=== PATIENT | male | born 1985 | race Caucasian/White ===

== ENCOUNTER 2016-11-24 09:46 | Emergency (ER) | payer SELFPAY ==
[~2016-11-24] VITALS: Ht 185.4 cm; Wt 127.0 kg
[~2016-11-24 09:46] MED LIST: ASPIRIN81 MG ORAL; BENTYL10 MG ORAL; HYDRALAZINE HCL25 M1 ORAL; NKM; NORCO 5-325 TA1 EACH ORAL; NORVASC10 MG ORAL; PEPCID40 MG PO; PRAVACHOL20 MG ORAL; TRAMADOL HCL50 MG ORAL; ZOFRAN ODT4 MG ORAL; ZOFRAN4 M3 ORAL
[2016-11-24 10:10] VITALS: BP 227/146
[2016-11-24] MEDS ORDERED: fentaNYL 100 mcg/2 mL IV ONE (11:15)
[2016-11-24 11:27] LABS: BASOPHILS % (AUTO) 1.3 % (0.0-2.0); LYMPHOCYTES % (AUTO) 39.7 % (20.0-45.0); MEAN CORPUSCULAR HEMOGLOBIN 29.4 PG (27.0-31.0); MEAN CORPUSCULAR HGB CONC 35.1 G/DL (32.0-36.0); MEAN CORPUSCULAR VOLUME 84 FL (80-99); MEAN PLATELET VOLUME 7.9 FL (6.5-10.1); MONOCYTES % (AUTO) 4.6 % (1.0-10.0); NEUTROPHILS % (AUTO) 53.4 % (45.0-75.0); PLATELET COUNT 261 K/UL (150-450); RED BLOOD COUNT 6.77 M/UL (4.70-6.10); RED CELL DISTRIBUTION WIDTH 11.1 % (11.6-14.8); WHITE BLOOD COUNT 6.9 K/UL (4.8-10.8)
[2016-11-24 11:36] LABS: ALANINE AMINOTRANSFERASE 72 U/L (3-41); ALBUMIN/GLOBULIN RATIO 1.3 (1.0-2.7); ANION GAP 18 (5-15); ASPARTATE AMINO TRANSFERASE 52 U/L (5-40); CARBON DIOXIDE 26 mEQ/L (20-30); CHLORIDE 93 mEQ/L (98-107); GLOMERULAR FILTRATION RATE > 60 mL/min (>60); HEMOLYSIS 14; LIPASE 58 U/L (< 60); POTASSIUM 2.8 mEQ/L (3.4-4.9); SODIUM 137 mEQ/L (135-145); TOTAL PROTEIN 8.4 g/dL (6.6-8.7)
[2016-11-24 12:00] VITALS: BP 199/127
[2016-11-24 12:29] LABS: APPEARANCE,URINE CLEAR; KETONES,URINE 1+ (NEGATIVE); LEUKOCYTE ESTERASE ,URINE NEGATIVE (NEGATIVE); NITRITE,URINE NEGATIVE (NEGATIVE); PH,URINE 5 (4.5-8.0); PROTEIN,URINE 3+ (NEGATIVE); UROBILINOGEN,URINE NORMAL MG/DL (0.0-1.0)
[2016-11-24 12:44] LABS: BACTERIA,URINE FEW /HPF; RBC,URINE 0-2 /HPF (0 - 0); SQUAMOUS EPITHELIAL CELL,UR OCCASIONAL /LPF (NONE/OCC); WBC,URINE 0-2 /HPF (0 - 0)
[2016-11-24] MEDS ORDERED: HYDROmorphone 1 MG, DiphenhydrAMINE 25 MG in NS 55 ML IVPB ONE (12:45)
[2016-11-24] MEDS ORDERED: NORVASC10 MG ORAL (12:53)
[2016-11-24] MEDS ORDERED: Tubing IV Cassette IV ONE (12:56)
[2016-11-24] MEDS ORDERED: NS 55 ML IV ONE (12:56)
[2016-11-24] MEDS ORDERED: HYDROmorphone 1mg/ml Carpuject ONE (12:56)
[2016-11-24] MEDS ORDERED: DiphenhydrAMINE 50mg/ml Inj ONE (12:56)
[2016-11-24 13:30] VITALS: BP 179/112
[2016-11-24 13:59] VITALS: BP 179/112
--- NOTE | 2016-11-25 16:05 | Emergency Room Report ---
History of Present Illness General Chief Complaint: Abdominal Pain Source: Patient Present Illness HPI 31YOM well-known to this ER for multiple visits for abd pain, known chronic pancreatitis presents with epigastric abd pain for 2 hours. Assoc with nausea. Denies fever/chills, urinary complaints, vomiting, diarrhea. Patient has very high BP. Known HTN per EMR review. Patient states not talking anything for BP, "wasnt told about this," but EMR clearly states there was a plan at discharge for multiple admissions to treat his known HTN. Allergies: Coded Allergies: MORPHINE (Verified Allergy, Unknown, HIVES, 05/05/09) Patient History Past Medical History: HTN Past Surgical History: none Pertinent Family History: none Social History: Denies: alcohol use, drug use, smoking Immunizations: UTD Reviewed Nursing Documentation: PMH: Agreed, PSxH: Agreed Nursing Documentation-PMH Past Medical History: No History, Except For Hx Hypertension: Yes Hx Diabetes: Yes - Pre-diabetic Hx Cancer: No Hx Gastrointestinal Problems: Yes Hx Neurological Problems: No Review of Systems All Other Systems: negative except mentioned in HPI Physical Exam Vital Signs Date Time Temp Pulse Resp B/P Pulse Ox O2 Delivery O2 Flow Rate FiO2 11/24/16 10:07 98.4 103 16 207/144 99 Room Air Sp02 EP Interpretation: reviewed, abnormal General Appearance: normal inspection, well appearing, no apparent distress, alert, GCS 15, non-toxic Head: normocephalic, atraumatic Eyes: bilateral eye EOMI, bilateral eye PERRL ENT: normal ENT inspection, hearing grossly normal, normal voice Neck: normal inspection, full range of motion, supple, no bony tend Respiratory: normal inspection, lungs clear, normal breath sounds, no respiratory distress, no retraction, no wheezing Cardiovascular #1: regular rate, rhythm, no edema Gastrointestinal: normal inspection, normal bowel sounds, soft, no guarding, no hernia, other - mild epigastric ttp Genitourinary: no CVA tenderness Musculoskeletal: normal inspection, back normal, normal range of motion, Nestor' s Sign negative Neurologic: normal inspection, alert, oriented x3, responsive, 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 Unlikely acute pancreatitis given previous visits with always elevated lipase Improved with narcotics Patient would continue to complain of pain and say "the medication worked and I fell asleep but then I woke up with pain" but on serial checks, always resting comfortably in stretcher, playing on [employer] App HTN DBP from 144 to 112 after treating pain. Reviewed EMR - plan was for patient to start Norvasc 10mg. Will DC with this RX Advised PMD for followup I strongly am concerned for narcotic seeking behavior in this patient. DC home Last Vital Signs Date Time Temp Pulse Resp B/P Pulse Ox O2 Delivery O2 Flow Rate FiO2 11/24/16 13:59 98.4 85 16 179/112 99 Room Air Status: improved Disposition: HOME, SELF-CARE Condition: Serious Scripts Amlodipine Besylate (Norvasc) 10 Mg Tablet 10 MG ORAL DAILY for 30 Days, #30 TAB Prov: NATALIIA HUIZAR M.D. 11/24/16 Patient Instructions: Abdominal Pain, Adult, Hypertension, [id number] Additional Instructions: - PLEASE Start taking Norvasc 10mg daily for your high blood pressure - Follow up with primary care doctor in 1 week NATALIIA HUIZAR M.D. Nov 25, 2016 16:05
== END 2016-11-24 13:59 | disposition home or self-care (01) ==
LOC: EMR 10:18
DX: R10.13 Epigastric pain (principal); I10 Essential (primary) hypertension; Z76.5 Malingerer [conscious simulation]; K86.1 Other chronic pancreatitis; R73.03 Prediabetes; Z88.6 Allergy status to analgesic agent; R11.0 Nausea
CPT/HCPCS: 36415; 80053; 81003; 83690; 85025; 96374; 96375; 99284; J1170; J1200; J2405; J3010

== ENCOUNTER 2017-06-05 18:04 | Emergency (ER) | payer SELFPAY ==
[~2017-06-05] VITALS: Ht 185.4 cm; Wt 127.0 kg
[2017-06-05 18:20] VITALS: BP 213/116
--- NOTE | 2017-06-05 18:27 | Emergency Room Report ---
History of Present Illness General Chief Complaint: Headache Source: Patient Present Illness HPI 31YOM walk-in with severe left sided frontal headache for 5 days No associated nausea/vomiting/photophobia, neck pain, fever/chills, extremity weakness ?history of migraines No history of SAH, meningitis Took ASA yesterday Pain is "all the time" except "when I sleep." No difference in symtpoms day/night Allergies: Coded Allergies: MORPHINE (Verified Allergy, Unknown, HIVES, 05/05/09) Patient History Past Medical History: COPD, other - pancreatitis Past Surgical History: none Pertinent Family History: none Social History: Denies: smoking, alcohol use, drug use Immunizations: UTD Reviewed Nursing Documentation: PMH: Agreed, PSxH: Agreed Nursing Documentation-PMH Hx Hypertension: Yes Hx Diabetes: Yes - Pre-diabetic Hx Cancer: No Hx Gastrointestinal Problems: Yes - Pancreatitis Hx Neurological Problems: No Review of Systems All Other Systems: negative except mentioned in HPI Physical Exam Vital Signs Date Time Temp Pulse Resp B/P (MAP) Pulse Ox O2 Delivery O2 Flow Rate FiO2 06/05/17 18:12 98.4 96 16 205/155 97 Room Air Sp02 EP Interpretation: reviewed, normal General Appearance: normal inspection, well appearing, no apparent distress, alert, GCS 15, non-toxic Head: normocephalic, atraumatic ENT: normal ENT inspection, hearing grossly normal, normal voice Neck: normal inspection, full range of motion, supple, no bony tend Respiratory: normal inspection, lungs clear, normal breath sounds, no respiratory distress, no retraction, no wheezing Cardiovascular #1: regular rate, rhythm, no edema Gastrointestinal: normal inspection, normal bowel sounds, non tender, soft, no guarding, no hernia Genitourinary: no CVA tenderness Musculoskeletal: normal inspection, back normal, normal range of motion, Nestor' s Sign negative Neurologic: normal inspection, alert, responsive, speech normal Psychiatric: normal inspection, judgement/insight normal, mood/affect normal Skin: normal inspection, normal color, no rash Medical Decision Making Diagnostic Impression: Primary Impression: Headache Qualified Codes: G44.209 - Tension-type headache, unspecified, not intractable Additional Impression: Hypertension Qualified Codes: I10 - Essential (primary) hypertension ER Course Headache Tension vs migraine less likely CT head neg for SAH, mass/AD Improved with reglan/tylenol BP also improved with analgesia Likely has HTN - was given norvasc by me in November. Never followed up with PMD - lost job. Not taking anything currently Will do additional Rx Norvasc Patient pormised to followup with PMD to recheck BP DC home Last Vital Signs Date Time Temp Pulse Resp B/P (MAP) Pulse Ox O2 Delivery O2 Flow Rate FiO2 06/05/17 18:12 98.4 96 16 205/155 97 Room Air Status: improved Disposition: HOME, SELF-CARE Scripts Acetaminophen* (ACETAMINOPHEN EXTRA STRENGTH*) 500 Mg Tablet 500 MG ORAL Q12HR Y for For Headache, #30 TAB Prov: NATALIIA HUIZAR M.D. 06/05/17 Metoclopramide Hcl* (REGLAN*) 10 Mg Tablet 10 MG ORAL BID for For Headache for 7 Days, #14 TAB Prov: NATALIIA HUIZAR M.D. 06/05/17 Amlodipine Besylate (Norvasc) 10 Mg Tablet 10 MG ORAL DAILY for 30 Days, #30 TAB 1 Refill Prov: NATALIIA HUIZAR M.D. 06/05/17 NATALIIA HUIZAR M.D. Jun 05, 2017 18:27
[2017-06-05 19:15] VITALS: BP 193/115
[2017-06-05] MEDS ORDERED: NORVASC10 MG ORAL (19:18)
[2017-06-05] MEDS ORDERED: REGLAN10 MG ORAL (19:18)
[2017-06-05] MEDS ORDERED: ACETAMINOPHEN500 M3 ORAL (19:18)
[2017-06-05 19:28] VITALS: BP 193/115
--- NOTE | 2017-06-06 09:46 | Diagnostic Imaging Report ---
Indications: Headache and dizziness since Tuesday, hypertensive Technique: Spiral acquisitions obtained through the brain. Angled axial and coronal 5 x 5 mm slices were reconstructed. Total dose length product 1417 mGycm. CTDI vol(s) 70 mGy. Dose reduction achieved using automated exposure control Comparison: None Findings: No acute intracranial hemorrhage or edema. No mass effect or midline shift. Ventricles and extra-axial CSF spaces are prominent for age. Normal chong-white differentiation. Intact calvarium. There is minimal ethmoid sinus disease on the left. Impression: Mild cerebral volume loss, advanced for age. Correlate with clinical history Negative for acute intracranial bleed or mass effect Minimal ethmoid sinus disease This agrees with the preliminary interpretation provided overnight by [facility] service. The CT scanner at [facility] is accredited by the [place] [employer] and the scans are performed using protocols designed to limit radiation exposure to as low as reasonably achievable to attain images of sufficient resolution adequate for diagnostic evaluation.
== END 2017-06-05 19:28 | disposition home or self-care (01) ==
LOC: EMR 18:38
DX: R51 Headache (principal); I10 Essential (primary) hypertension; J44.9 Chronic obstructive pulmonary disease, unspecified; J32.2 Chronic ethmoidal sinusitis
CPT/HCPCS: 70450; 99284

== ENCOUNTER 2018-06-06 06:59 | Emergency (ER) | payer SELFPAY ==
[2018-06-06] VITALS (7 sets, daily range): BP systolic 159–224; BP diastolic 98–157
[~2018-06-06] VITALS: Ht 185.4 cm; Wt 122.5 kg
[~2018-06-06 06:59] MED LIST changes: +ACETAMINOPHEN500 M3 ORAL; +REGLAN10 MG ORAL
[2018-06-06] MEDS ORDERED: Metoclopramide 10mg/2ml Inj IVP ONE (07:15)
[2018-06-06] MEDS ORDERED: DiphenhydrAMINE 50mg/ml Inj IVP ONE (07:15)
[2018-06-06] MEDS ORDERED: Ketorolac 30mg Inj IV ONE (07:15)
--- NOTE | 2018-06-06 07:17 | Emergency Room Report ---
History of Present Illness General Chief Complaint: Abdominal Pain Source: Patient Present Illness HPI Patient is a 32-year-old male presented after increased abdominal discomfort. Patient reports having increased left-sided abdominal cramping. He reports having increased abdominal pain associated with nausea. He denies any black or bloody stools. He reports having prior history of pancreatitis. Patient denies any alcohol use. He reports having prior history of hypertriglyceridemia. The patient is nonsmoker. He denies any other locations of pain. He states that he had no change in pain with exertion or position. Allergies: Coded Allergies: MORPHINE (Verified Allergy, Unknown, HIVES, 05/05/09) Patient History Past Medical History: see triage record Reviewed Nursing Documentation: PMH: Agreed; PSxH: Agreed Nursing Documentation-PMH Past Medical History: No History, Except For Hx Hypertension: Yes Hx Diabetes: Yes - Pre-diabetic Hx Cancer: No Hx Gastrointestinal Problems: Yes Hx Neurological Problems: No Review of Systems All Other Systems: negative except mentioned in HPI Physical Exam Vital Signs Date Time Temp Pulse Resp B/P (MAP) Pulse Ox O2 Delivery O2 Flow Rate FiO2 06/06/18 07:02 97.5 91 18 235/141 98 Room Air Sp02 EP Interpretation: reviewed, normal General Appearance: normal inspection, well appearing, no apparent distress, alert, GCS 15 Head: atraumatic ENT: normal ENT inspection, hearing grossly normal, normal voice Neck: normal inspection, full range of motion, supple, no bony tend Respiratory: normal inspection, lungs clear, normal breath sounds, no respiratory distress, no retraction, no wheezing Cardiovascular #1: regular rate, rhythm, no edema Gastrointestinal: normal inspection, normal bowel sounds, non tender, soft, no guarding, no hernia Genitourinary: no CVA tenderness Musculoskeletal: normal inspection, back normal, normal range of motion Neurologic: normal inspection, alert, oriented x3, responsive, 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 Differential diagnoses included ischemic bowel, appendicitis, perforated viscus, abdominal aortic aneurysm, inferior myocardial infarction, viral gastroenteritis Because of complexity of patient's case laboratory testing and imaging studies were ordered.The patient was noted to have previous abdominal MRI which did not show any evidence of severe abdominal pathology. Patient given medications to the assist with lowering patient's blood pressure which was noted be markedly elevated and had been chronically elevated. The patient states he is allergic to morphine. The patient was given medications for symptomatic treatment. He was given IV magnesium and oral potassium due to hypokalemia. The patient given medication to help control blood pressure with improvement in his hypertension. The patient was advised that he would need to follow-up with primary care as well as cardiology and rheumatology due to prior positive antinuclear antibodies. The patient given prescription for pain medications as well as metformin due to hyperglycemia. The patient was advised dietary modification. The patient is advised to follow up with primary care doctor in 2 days. Patient is advised to return if any worsening condition or if any changes in status that are concerning. This report is dictated with [employer] [place] software which may occasionally lead to discrepancies related to use of this software. Labs Test 06/06/18 07:17 White Blood Count 6.8 K/UL (4.8-10.8) Red Blood Count 6.64 M/UL (4.70-6.10) Hemoglobin 19.5 G/DL (14.2-18.0) Hematocrit 52.6 % (42.0-52.0) Mean Corpuscular Volume 79 FL (80-99) Mean Corpuscular Hemoglobin 29.4 PG (27.0-31.0) Mean Corpuscular Hemoglobin Concent 37.2 G/DL (32.0-36.0) Red Cell Distribution Width 9.9 % (11.6-14.8) Platelet Count 248 K/UL (150-450) Mean Platelet Volume 7.9 FL (6.5-10.1) Neutrophils (%) (Auto) 41.8 % (45.0-75.0) Lymphocytes (%) (Auto) 47.1 % (20.0-45.0) Monocytes (%) (Auto) 7.6 % (1.0-10.0) Eosinophils (%) (Auto) 1.9 % (0.0-3.0) Basophils (%) (Auto) 1.6 % (0.0-2.0) Prothrombin Time 10.2 SEC (9.30-11.50) Prothromb Time International Ratio 1.0 (0.9-1.1) Activated Partial Thromboplast Time 26 SEC (23-33) Sodium Level 133 MMOL/L (136-145) Potassium Level 3.0 MMOL/L (3.5-5.1) Chloride Level 96 MMOL/L (98-107) Carbon Dioxide Level 23 MMOL/L (21-32) Anion Gap 14 mmol/L (5-15) Blood Urea Nitrogen 19 mg/dL (7-18) Creatinine 1.1 MG/DL (0.55-1.30) Estimat Glomerular Filtration Rate > 60 mL/min (>60) Glucose Level 360 MG/DL (74-106) Calcium Level 9.1 MG/DL (8.5-10.1) Total Bilirubin 0.5 MG/DL (0.2-1.0) Aspartate Amino Transf (AST/SGOT) 24 U/L (15-37) Alanine Aminotransferase (ALT/SGPT) 63 U/L (12-78) Alkaline Phosphatase 87 U/L (46-116) Troponin I 0.000 ng/mL (0.000-0.056) Total Protein 8.3 G/DL (6.4-8.2) Albumin 3.7 G/DL (3.4-5.0) Globulin 4.6 g/dL Albumin/Globulin Ratio 0.8 (1.0-2.7) Lipase 467 U/L (73-393) EKG Diagnostic Results Rate: normal Rhythm: NSR ST Segments: other - j point elevation Last Vital Signs Date Time Temp Pulse Resp B/P (MAP) Pulse Ox O2 Delivery O2 Flow Rate FiO2 06/06/18 07:02 97.5 91 18 235/141 98 Room Air Status: improved Disposition: HOME, SELF-CARE Condition: Stable Scripts Hydrocodone Bit/Acetaminophen 5-325* (NORCO 5-325*) 1 Each Tablet 1 TAB ORAL Q6H PRN for For Pain, #10 TAB 0 Refills Prov: Juan Pablo Galvan MD 06/06/18 Ondansetron Odt* (ZOFRAN ODT*) 4 Mg Tab.rapdis 4 MG BC EVERY 6 HOURS PRN for Nausea & Vomiting, #10 TAB 0 Refills Prov: Juan Pablo Galvan MD 06/06/18 Metformin Hcl* (METFORMIN HCL*) 500 Mg Tablet 500 MG ORAL TWICE A DAY, #30 TAB Prov: Juan Pablo Galvan MD 06/06/18 Juan Pablo Galvan MD Jun 06, 2018 07:17
[2018-06-06 07:41] LABS: BASOPHILS % (AUTO) 1.6 % (0.0-2.0); EOSINOPHILS % (AUTO) 1.9 % (0.0-3.0); HEMATOCRIT 52.6 % (42.0-52.0); LYMPHOCYTES % (AUTO) 47.1 % (20.0-45.0); MEAN CORPUSCULAR VOLUME 79 FL (80-99); MONOCYTES % (AUTO) 7.6 % (1.0-10.0); NEUTROPHILS % (AUTO) 41.8 % (45.0-75.0); PLATELET COUNT 248 K/UL (150-450); RED BLOOD COUNT 6.64 M/UL (4.70-6.10); RED CELL DISTRIBUTION WIDTH 9.9 % (11.6-14.8); WHITE BLOOD COUNT 6.8 K/UL (4.8-10.8)
[2018-06-06] MEDS ORDERED: Enalaprilat 2.5mg/2ml Inj IV ONE (07:45)
[2018-06-06 07:46] LABS: HEMOGLOBIN 19.5 G/DL (14.2-18.0)
[2018-06-06 08:06] LABS: ANION GAP 14 mmol/L (5-15); BLOOD UREA NITROGEN 19 mg/dL (7-18); CALCIUM 9.1 MG/DL (8.5-10.1); CARBON DIOXIDE 23 MMOL/L (21-32); CHLORIDE 96 MMOL/L (98-107); CREATININE 1.1 MG/DL (0.55-1.30); SODIUM 133 MMOL/L (136-145)
[2018-06-06 08:09] LABS: ALANINE AMINOTRANSFERASE 63 U/L (12-78); ALBUMIN 3.7 G/DL (3.4-5.0); ALBUMIN/GLOBULIN RATIO 0.8 (1.0-2.7); ALKALINE PHOSPHATASE 87 U/L (46-116); ASPARTATE AMINO TRANSFERASE 24 U/L (15-37); BILIRUBIN,TOTAL 0.5 MG/DL (0.2-1.0)
[2018-06-06] MEDS ORDERED: ONDANSETRON ODT4 MG BC (08:23)
[2018-06-06] MEDS ORDERED: METFORMIN HCL500 M1 ORAL (08:23)
[2018-06-06] MEDS ORDERED: NORCO 5-325 TA1 EACH ORAL (08:23)
--- NOTE | 2018-06-06 14:57 | Cardiology Report ---
APPROVED REPORT EKG Measurement Heart [id number] Normal sinus rhythm Left ventricular hypertrophy with repolarization abnormality Cannot rule out Septal infarct, age undetermined Abnormal ECG
== END 2018-06-06 09:20 | disposition home or self-care (01) ==
LOC: EMR 07:15
DX: K85.90 Acute pancreatitis without necrosis or infection, unspecified (principal); I10 Essential (primary) hypertension; R73.03 Prediabetes
CPT/HCPCS: 36415; 80053; 83690; 84484; 85025; 85610; 85730; 86850; 86900; 86901; 93005; 96361; 96365; 96375; 99284; J1200; J1885; J2765; S0028; J8499

== ENCOUNTER → 2018-09-25 | Emergency (ER) | payer OTHER ==
[~2018-09-25] VITALS: Ht 185.4 cm; Wt 120.2 kg
[~2018-09-25] MED LIST changes: +CARVEDILOL25 MG ORAL; +DiphenhydrAMINE 50mg/ml Inj IVP ONE; +Enalaprilat 2.5mg/2ml Inj IV ONE; +FENOFIBRATE145 M1 ORAL; +HYDROmorphone 1mg/ml Carpuject IVP ONE; +LOSARTAN POTASS50 MG ORAL; +METFORMIN HCL500 M1 ORAL; +METFORMIN HCL850 M1 ORAL; +Nitroglycerin Subl 0.4mg tab SL PRN; +ONDANSETRON ODT4 MG BC
[2018-09-25 09:05] VITALS: BP 179/115
--- NOTE | 2018-09-25 09:05 | NUR ---
ED Nurse Note: AMBULATED IN TO ER DUE TO SHARP CHEST AND ABDOMINAL PAIN W/ N/V/D SINCE LAST NIGHT. HTN AT THE BEDSIDE, PT STATES THAT HE DID NOT TAKE BP MEDICATIONS TODAY. Addendum: 09/25/18 at 0939 by [email or web address] ED Nurse Note: AMBULATED IN TO ER DUE TO SHARP CHEST AND ABDOMINAL PAIN W/ N/V/D SINCE LAST NIGHT. HTN AT THE BEDSIDE, PT STATES THAT HE DID NOT TAKE BP MEDICATIONS TODAY- LOSARTAN 100MG DAILY AND CARVEDILOL 25MG BID.
--- NOTE | 2018-09-25 09:20 | NUR ---
ED Nurse Note: BLOOD SPECIMENS AND URINE SENT DOWN TO THE LAB.
[2018-09-25 09:44] LABS: APPEARANCE,URINE CLEAR; BILIRUBIN, URINE NEGATIVE (NEGATIVE); COLOR,URINE PALE YELLOW; GLUCOSE, URINE (UA) 4+ (NEGATIVE); KETONES,URINE NEGATIVE (NEGATIVE); LEUKOCYTE ESTERASE ,URINE NEGATIVE (NEGATIVE); NITRITE,URINE NEGATIVE (NEGATIVE); PH,URINE 6.5 (4.5-8.0); PROTEIN,URINE 3+ (NEGATIVE); UROBILINOGEN,URINE NORMAL MG/DL (0.0-1.0)
[2018-09-25 09:55] LABS: BASOPHILS % (AUTO) 1.7 % (0.0-2.0); EOSINOPHILS % (AUTO) 2.3 % (0.0-3.0); HEMATOCRIT 47.1 % (42.0-52.0); HEMOGLOBIN 16.8 G/DL (14.2-18.0); LYMPHOCYTES % (AUTO) 34.5 % (20.0-45.0); MEAN CORPUSCULAR VOLUME 83 FL (80-99); MONOCYTES % (AUTO) 8.5 % (1.0-10.0); PLATELET COUNT 235 K/UL (150-450); RED BLOOD COUNT 5.66 M/UL (4.70-6.10); RED CELL DISTRIBUTION WIDTH 11.3 % (11.6-14.8); WHITE BLOOD COUNT 6.6 K/UL (4.8-10.8)
[2018-09-25 09:56] VITALS: BP 183/119
[2018-09-25 09:59] LABS: ANION GAP 9 mmol/L (5-15); BLOOD UREA NITROGEN 13 mg/dL (7-18); CALCIUM 8.8 MG/DL (8.5-10.1); CARBON DIOXIDE 26 MMOL/L (21-32); CHLORIDE 99 MMOL/L (98-107); CREATININE 1.1 MG/DL (0.55-1.30); POTASSIUM 3.2 MMOL/L (3.5-5.1); SODIUM 134 MMOL/L (136-145)
[2018-09-25 10:03] LABS: ALANINE AMINOTRANSFERASE 46 U/L (12-78); ALBUMIN 3.6 G/DL (3.4-5.0); ALKALINE PHOSPHATASE 65 U/L (46-116); ASPARTATE AMINO TRANSFERASE 20 U/L (15-37); BILIRUBIN,TOTAL 0.3 MG/DL (0.2-1.0)
[2018-09-25 13:35] VITALS: BP 177/110
--- NOTE | 2018-09-25 14:35 | NUR ---
ED Nurse Note: notified Dr. Eldridge regarding pt's high BP.
--- NOTE | 2018-09-25 16:10 | NUR ---
ED Nurse Note: Telephone report given to FATOUMATA Wilder at [facility]. [facility] at the beside.
[2018-09-25 16:11] VITALS: BP 181/112
[2018-09-25 16:12] VITALS: BP 181/112
--- NOTE | 2018-09-25 16:13 | NUR ---
TRANSFER TO FLOOR: Patient transferred to [facility] as ordered VIA [facility]. Report given to FATOUMATA WERNER. Belongings given to patient. No s/s of distres.
--- NOTE | 2018-09-25 16:42 | Emergency Room Report ---
History of Present Illness General Chief Complaint: Chest Pain Source: Patient, Medical Record Present Illness HPI 33-year-old male presents ED for evaluation. Complaining of abdominal pain with vomiting and chest pain since last night. Pain is sharp, 10 out of 10, nonradiating. Patient notes history of pancreatitis. Denies alcohol or drug use. Notes history of hypertension. Blood pressure in triage systolic greater than 200. States he takes losartan is compliant with his medications. No other aggravating relieving factors. Denies any other associated symptoms Allergies: Coded Allergies: MORPHINE (Verified Allergy, Unknown, HIVES, 05/05/09) Patient History Past Medical History: DM, HTN, other - Pancreatitis Pertinent Family History: none Social History: Denies: smoking, alcohol use, drug use Immunizations: UTD Reviewed Nursing Documentation: PMH: Agreed; PSxH: Agreed Nursing Documentation-PMH Past Medical History: No History, Except For Hx Hypertension: Yes Hx Diabetes: Yes Hx Cancer: No Hx Gastrointestinal Problems: Yes Hx Neurological Problems: No Review of Systems All Other Systems: negative except mentioned in HPI Physical Exam Vital Signs Date Time Temp Pulse Resp B/P (MAP) Pulse Ox O2 Delivery O2 Flow Rate FiO2 09/25/18 08:59 98.1 83 18 219/130 96 Room Air Sp02 EP Interpretation: reviewed, normal General Appearance: alert, GCS 15, non-toxic, mild distress Head: normocephalic, atraumatic Eyes: bilateral eye normal inspection, bilateral eye PERRL ENT: hearing grossly normal, normal pharynx, no angioedema, normal voice Neck: full range of motion, supple/symm/no masses Respiratory: chest non-tender, lungs clear, normal breath sounds, speaking full sentences Cardiovascular #1: regular rate, rhythm, no edema Cardiovascular #2: 2+ carotid (R), 2+ carotid (L), 2+ radial (R), 2+ radial (L) , 2+ dorsalis pedis (R), 2+ dorsalis pedis (L) Gastrointestinal: normal bowel sounds, soft, non-distended, no guarding, no rebound, tenderness - Epigastric Rectal: deferred Genitourinary: normal inspection, no CVA tenderness Musculoskeletal: back normal, gait/station normal, normal range of motion, non- tender Neurologic: alert, oriented x3, responsive, motor strength/tone normal, sensory intact, speech normal Psychiatric: judgement/insight normal, memory normal, mood/affect normal, no suicidal/homicidal ideation Reflexes: 3+ bicep (R), 3+ bicep (L), 3+ tricep (R), 3+ tricep (L), 3+ knee (R) , 3+ knee (L) Skin: normal color, no rash, warm/dry, well hydrated Lymphatic: no adenopathy Medical Decision Making Diagnostic Impression: Primary Impression: Pancreatitis Qualified Codes: K86.1 - Other chronic pancreatitis Additional Impressions: Chest pain Qualified Codes: R07.9 - Chest pain, unspecified Hypertension Qualified Codes: I10 - Essential (primary) hypertension ER Course Hospital Course 33-year-old male presents with chest pain, abdominal pain, hypertension Differential diagnoses include: CA/unstable angina, hypertensive urgency, pancreatitis Clinical course Patient placed on stretcher. on hr leader. After initial history and physical I ordered labs, EKG, Pepcid, Zofran labs reviewed- no leukocytosis, hemoglobin/hematocrit stable, electrolytes okay , troponins 0.030, lipase > 1000 EKG = normal sinus rhythm no acute ischemic changes interpreted by me Patient still has significant pain. Dilaudid ordered. Blood pressure also significantly elevated. Given hydralazine, enalapril, clonidine blood pressure improved and aspirin given Because of insurance patient will be transferred I. I feel this is a highly complex case requiring extensive working including EKG/Rhythm strip, Xray/CT/US, Blood/urine lab work, repeat exams while in ED, and administration of strong opiates/narcotics for pain control, admission to hospital or close patient follow up. Diagnosis - ACS, pancreatitis, hypertension Transferred in serious condition Labs Test 09/25/18 09:34 White Blood Count 6.6 K/UL (4.8-10.8) Red Blood Count 5.66 M/UL (4.70-6.10) Hemoglobin 16.8 G/DL (14.2-18.0) Hematocrit 47.1 % (42.0-52.0) Mean Corpuscular Volume 83 FL (80-99) Mean Corpuscular Hemoglobin 29.7 PG (27.0-31.0) Mean Corpuscular Hemoglobin Concent 35.7 G/DL (32.0-36.0) Red Cell Distribution Width 11.3 % (11.6-14.8) Platelet Count 235 K/UL (150-450) Mean Platelet Volume 8.3 FL (6.5-10.1) Neutrophils (%) (Auto) 53.0 % (45.0-75.0) Lymphocytes (%) (Auto) 34.5 % (20.0-45.0) Monocytes (%) (Auto) 8.5 % (1.0-10.0) Eosinophils (%) (Auto) 2.3 % (0.0-3.0) Basophils (%) (Auto) 1.7 % (0.0-2.0) Urine Color Pale yellow Urine Appearance Clear Urine pH 6.5 (4.5-8.0) Urine Specific [place] 1.010 (1.005-1.035) Urine Protein 3+ (NEGATIVE) Urine Glucose (UA) 4+ (NEGATIVE) Urine Ketones Negative (NEGATIVE) Urine Blood Negative (NEGATIVE) Urine Nitrite Negative (NEGATIVE) Urine Bilirubin Negative (NEGATIVE) Urine Urobilinogen Normal MG/DL (0.0-1.0) Urine Leukocyte Esterase Negative (NEGATIVE) Urine RBC 0 /HPF (0 - 0) Urine WBC 0 /HPF (0 - 0) Urine Squamous Epithelial Cells Occasional /LPF Urine Bacteria None /HPF (NONE) Sodium Level 134 MMOL/L (136-145) Potassium Level 3.2 MMOL/L (3.5-5.1) Chloride Level 99 MMOL/L (98-107) Carbon Dioxide Level 26 MMOL/L (21-32) Anion Gap 9 mmol/L (5-15) Blood Urea Nitrogen 13 mg/dL (7-18) Creatinine 1.1 MG/DL (0.55-1.30) Estimat Glomerular Filtration Rate > 60 mL/min (>60) Glucose Level 278 MG/DL (74-106) Calcium Level 8.8 MG/DL (8.5-10.1) Total Bilirubin 0.3 MG/DL (0.2-1.0) Aspartate Amino Transf (AST/SGOT) 20 U/L (15-37) Alanine Aminotransferase (ALT/SGPT) 46 U/L (12-78) Alkaline Phosphatase 65 U/L (46-116) Troponin I 0.030 ng/mL (0.000-0.056) Total Protein 7.2 G/DL (6.4-8.2) Albumin 3.6 G/DL (3.4-5.0) Globulin 3.6 g/dL Albumin/Globulin Ratio 1.0 (1.0-2.7) Lipase 1011 U/L (73-393) Urine Opiates Screen Negative (NEGATIVE) Urine Barbiturates Screen Negative (NEGATIVE) Phencyclidine (PCP) Screen Negative (NEGATIVE) Urine Amphetamines Screen Negative (NEGATIVE) Urine Benzodiazepines Screen Negative (NEGATIVE) Urine Cocaine Screen Negative (NEGATIVE) Urine Marijuana (THC) Screen Positive (NEGATIVE) EKG Diagnostic Results Rate: normal Rhythm: NSR ST Segments: no acute changes ASA given to the pt in ED: Yes Rhythm Strip Diag. Results EP Interpretation: yes Rhythm: NSR, no PVC's, no ectopy Last Vital Signs Date Time Temp Pulse Resp B/P (MAP) Pulse Ox O2 Delivery O2 Flow Rate FiO2 09/25/18 16:12 98.1 80 22 181/112 95 Room Air Status: improved Disposition: [facility]FER [facility] Condition: Serious Referrals: [facility],REFERRING (PCP) Ander Chang MD Sep 25, 2018 16:42
--- NOTE | 2018-09-25 17:00 | NUR ---
OUTSIDE TRANSFER: Patient transferred to [facility] as ordered VIA [facility]. Report given to FATOUMATA WERNER. Belongings given to patient. No s/s of distres.
--- NOTE | 2018-09-26 15:33 | Cardiology Report ---
APPROVED REPORT EKG Measurement Heart [id number] Normal sinus rhythm Septal infarct, age undetermined Abnormal ECG
== END | disposition home or self-care (01) ==
LOC: EMR 09:45 → EDBEDREQ 11:09
DX: K86.1 Other chronic pancreatitis (principal); I10 Essential (primary) hypertension; R07.9 Chest pain, unspecified; E11.9 Type 2 diabetes mellitus without complications; Z88.6 Allergy status to analgesic agent
CPT/HCPCS: 36415; 80053; 80307; 81003; 83690; 84484; 85025; 93005; 96361; 96374; 96375; 99285; J0360; J1170; J1200; J2405; S0028

== ENCOUNTER 2019-10-14 17:12 | Inpatient (IN) | payer OTHER ==
[~2019-10-14] VITALS: Ht 185.4 cm; Wt 119.5 kg
[~2019-10-14 17:12] MED LIST changes: -DiphenhydrAMINE 50mg/ml Inj IVP ONE; -Enalaprilat 2.5mg/2ml Inj IV ONE; -HYDROmorphone 1mg/ml Carpuject IVP ONE; -Nitroglycerin Subl 0.4mg tab SL PRN
--- NOTE | 2019-10-14 17:30 | NUR ---
ED Nurse Note: ambulated to e c/o cough bodyache and sob x tuesday. temp 98.1f oral. bp 201/123. pt states noncomplance with medication due to insurance. ao4. nad. changed into gown; attached to monitor; safety measures met.
--- NOTE | 2019-10-14 17:33 | NUR ---
ED Nurse Note: iv access established. blood and flu swab collected; sent down to lab.
[2019-10-14 17:40] VITALS: BP 201/123
--- NOTE | 2019-10-14 17:43 | Emergency Room Report ---
History of Present Illness General Chief Complaint: Upper Respiratory Illness Source: Patient Present Illness HPI Disclaimer: Please note that this report is being documented using DRAGON technology. This can lead to erroneous entry secondary to incorrect interpretation by the dictating instrument. HPI: 34-year-old male presents for evaluation of myalgias, cough and diarrhea. Symptoms began 2 days ago. He notes a progressive and nonproductive cough, chest congestion and mild shortness of breath. Cough is been working sitting all weekend. He denies fever or chills. Denies nasal congestion or sore throat. He denies abdominal pain or nausea but does report multiple episodes of diarrhea. Denies hematuria, dysuria, hematochezia or melena. Denies flank pain. States multiple sick contacts at the office. No known hospitalization and no known travel or exposure to persons with recent travel. Patient also arrives hypertensive. He states he had a lapse in insurance at the end of last year but now is returned. He is no longer following up with his PMD due to the lab labs and reinsurance has not taken his antihypertensives for several months. He denies any headache, visual changes, numbness or tingling at this time. PMH: Pancreatitis, hypertension PSH: Reviewed Allergies: Morphine Social Hx: Denies drug or alcohol use Allergies: Coded Allergies: MORPHINE (Verified Allergy, Unknown, HIVES, 05/05/09) Nursing Documentation-PMH Hx Hypertension: Yes Hx Diabetes: Yes Hx Cancer: No Hx Gastrointestinal Problems: Yes Hx Neurological Problems: No Review of Systems All Other Systems: negative except mentioned in HPI Physical Exam Vital Signs Date Time Temp Pulse Resp B/P (MAP) Pulse Ox O2 Delivery O2 Flow Rate FiO2 10/14/19 17:19 98.1 95 18 201/123 (149) 95 Room Air General: Awake and alert, no acute distress, hypertensive HEENT: NC/AT. EOMI. Cardiovascular: RRR. S1 and S2 normal. No murmur appreciated Resp: Normal work of breathing. Intermittent cough. No wheezing or crackles appreciated Abdomen: Abdomen is soft, nondistended. Nontender Skin: Intact. No abrasions, laceration or rash over the exposed skin MSK: Normal tone and bulk. Moving all extremities. No obvious deformity. Neuro: Awake and alert. Mentating appropriately. Procedures Critical Care Time Critical Care Time Total critical care time: Approximately 45 minutes Due to a high probability of clinically significant, life threatening deterioration, the patient required the highest level of preparedness to intervene emergently and I personally spent this critical care time directly and personally managing the patient. This critical care time included obtaining a history, examining the patient, pulse oximetry, ordering and reviewing studies , ordering treatments, evaluating response to treatment and updating management plan as needed, frequent reassessment and discussion with other providers as well as arranging for ultimate disposition. This critical to care time was performed to assess and manage the high probability of life-threatening deterioration that could result in multiorgan failure. This critical care time is separate from the separately billable procedures and treating other patients. Medical Decision Making Diagnostic Impression: Primary Impression: Hyperglycemia Additional Impressions: Hypertensive urgency Respiratory illness ER Course 34-year-old male presenting for evaluation of cough, myalgias, diarrhea over the past 2 days. Differential includes was not limited to a viral syndrome, possibly influenza, pneumonia, bronchitis, reactive airway disease. Overall he is well-appearing and afebrile though he does arrive hypertensive. He does not appear to be symptomatic at this time. Labs in his insurance caused him to be without his antihypertensive medications for several months. We will give him antihypertensives here in the ED. Do not believe he requires emergent imaging at this time aside from chest x-ray. Will advance work-up as needed. Laboratory Tests Test 10/14/19 17:40 White Blood Count 8.4 K/UL (4.8-10.8) Red Blood Count 6.01 M/UL (4.70-6.10) Hemoglobin 17.6 G/DL (14.2-18.0) Hematocrit 48.1 % (42.0-52.0) Mean Corpuscular Volume 80 FL (80-99) Mean Corpuscular Hemoglobin 29.4 PG (27.0-31.0) Mean Corpuscular Hemoglobin Concent 36.7 G/DL (32.0-36.0) H Red Cell Distribution Width 10.2 % (11.6-14.8) L Platelet Count 259 K/UL (150-450) Mean Platelet Volume 7.6 FL (6.5-10.1) Neutrophils (%) (Auto) 53.7 % (45.0-75.0) Lymphocytes (%) (Auto) 36.3 % (20.0-45.0) Monocytes (%) (Auto) 7.4 % (1.0-10.0) Eosinophils (%) (Auto) 1.1 % (0.0-3.0) Basophils (%) (Auto) 1.5 % (0.0-2.0) Sodium Level 136 MMOL/L (136-145) Potassium Level 3.2 MMOL/L (3.5-5.1) L Chloride Level 98 MMOL/L (98-107) Carbon Dioxide Level 28 MMOL/L (21-32) Anion Gap 10 mmol/L (5-15) Blood Urea Nitrogen 25 mg/dL (7-18) H Creatinine 1.3 MG/DL (0.55-1.30) Estimate Glomerular Filtration Rate > 60 mL/min (>60) Glucose Level 415 MG/DL (74-106) H Calcium Level 9.6 MG/DL (8.5-10.1) Total Bilirubin 0.3 MG/DL (0.2-1.0) Aspartate Amino Transferase (AST) 25 U/L (15-37) Alanine Aminotransferase (ALT) 66 U/L (12-78) Alkaline Phosphatase 70 U/L (46-116) Troponin I 0.043 ng/mL (0.000-0.056) Total Protein 7.6 G/DL (6.4-8.2) Albumin 3.5 G/DL (3.4-5.0) Globulin 4.1 g/dL Albumin/Globulin Ratio 0.9 (1.0-2.7) L Microbiology Date/Time Source Procedure Growth Status 10/14/19 17:40 Nasal Nares - Final Complete 10/14/19 17:40 Nasal Nares - Final Complete EKG Diagnostic Results EKG Time: 16:36 Rate: normal Rhythm: NSR ST Segments: no acute changes Other Impression Sinus rhythm, normal axis, normal intervals, nonspecific ST and T wave changes. Possible early repolarization Rhythm Strip Diag. Results Rhythm Strip Time: 16:36 EP Interpretation: yes Rate: 90s Rhythm: NSR, no PVC's, no ectopy Chest X-Ray Diagnostic Results Chest X-Ray Diagnostic Results : Chest X-Ray Ordered: Yes # of Views/Limited/Complete: 1 View Indication: Shortness of Breath EP Interpretation: Yes Interpretation: no consolidation, no effusion, no pneumothorax, no acute cardiopulmonary disease Impression: No acute disease Electronically Signed by: Electronically signed by Dr. Qasim Love CT/MRI/US Diagnostic Results CT/MRI/US Diagnostic Results : Impression Preliminary Findings Only See Final Report For Complete Findings CT HEAD Without Contrast: Impression: No acute intracranial pathology, similar to the previous study. If there is concern for etiology such as early acute lacunar infarcts, magnetic resonance imaging of the brain with diffusion-weighted sequences should be performed for follow-up. Incidental findings: Correlation is made to previous study of 06/05/2017. Appearance of the ventricular system is stable. No midline shift or mass- effect. No abnormal extra-axial collection. Calvarium is unremarkable. Mastoid air cells are well pneumatized. Visualized sinuses are unremarkable. Radiologist: Iban Vazquez MD Study ready at 19:38 and initial results transmitted at 19:41 Reevaluation Time: 20:00 Last Vital Signs Date Time Temp Pulse Resp B/P (MAP) Pulse Ox O2 Delivery O2 Flow Rate FiO2 10/14/19 17:19 98.1 95 18 201/123 (149) 95 Room Air Reevaluation Impression No obvious consolidation seen on chest x-ray. Patient remains 100% on room air. EKG does not appear ischemic though he is intermittently tachycardic. Troponin within normal limits. Patient remains hypertensive with systolics greater than 200 despite receiving clonidine and hydralazine. While he denied of a headache initially on presentation he was now complaining of moderate global headache without vision changes. CT was obtained; no evidence of bleed or mass. Largely unchanged from previous study 2017. His blood glucose was also elevated greater than 400 without an anion gap. No concern for DKA at this time and gave insulin for the elevated glucose levels. Given the patient' s multiple lab abnormalities and persistent hypertension believe he will require admission. Disposition: ADMITTED INPATIENT Condition: Serious Qasim Love MD Oct 14, 2019 17:43
[2019-10-14] MEDS ORDERED: Ketorolac 30mg Inj IV ONE (17:45)
[2019-10-14 18:28] LABS: BASOPHILS % (AUTO) 1.5 % (0.0-2.0); EOSINOPHILS % (AUTO) 1.1 % (0.0-3.0); HEMATOCRIT 48.1 % (42.0-52.0); HEMOGLOBIN 17.6 G/DL (14.2-18.0); LYMPHOCYTES % (AUTO) 36.3 % (20.0-45.0); MEAN CORPUSCULAR VOLUME 80 FL (80-99); MONOCYTES % (AUTO) 7.4 % (1.0-10.0); NEUTROPHILS % (AUTO) 53.7 % (45.0-75.0); PLATELET COUNT 259 K/UL (150-450); RED BLOOD COUNT 6.01 M/UL (4.70-6.10); RED CELL DISTRIBUTION WIDTH 10.2 % (11.6-14.8); WHITE BLOOD COUNT 8.4 K/UL (4.8-10.8)
[2019-10-14 18:30] LABS: ANION GAP 10 mmol/L (5-15); BLOOD UREA NITROGEN 25 mg/dL (7-18); CALCIUM 9.6 MG/DL (8.5-10.1); CARBON DIOXIDE 28 MMOL/L (21-32); CHLORIDE 98 MMOL/L (98-107); CREATININE 1.3 MG/DL (0.55-1.30); POTASSIUM 3.2 MMOL/L (3.5-5.1); SODIUM 136 MMOL/L (136-145)
[2019-10-14 18:36] LABS: ALANINE AMINOTRANSFERASE 66 U/L (12-78); ALBUMIN 3.5 G/DL (3.4-5.0); ALBUMIN/GLOBULIN RATIO 0.9 (1.0-2.7); ALKALINE PHOSPHATASE 70 U/L (46-116); ASPARTATE AMINO TRANSFERASE 25 U/L (15-37); BILIRUBIN,TOTAL 0.3 MG/DL (0.2-1.0)
[2019-10-14] MEDS ORDERED: Insulin Human Regular 100units/ml 3ml IV ONE (18:45)
[2019-10-14 19:10] VITALS: BP 206/117
--- NOTE | 2019-10-14 19:10 | NUR ---
ED Nurse Note: Report received from Krunal rothman RN. Pt is aaox4, no acute distress noted. Pt BP 206/117 at this time, ERMD aware. Will continue to monitor. Pt reports headache, ERMD made aware.
--- NOTE | 2019-10-14 19:10 | NUR ---
HAND-OFF: Report given to Samantha timmons. patient resting in bed with no acute distress.
[2019-10-14] MEDS ORDERED: Labetalol 5mg/ml 20ml vial IV ONE ×2 (19:15→20:00)
[2019-10-14] MEDS ORDERED: Albuterol/Ipratropium 3ml neb HHN ONE (19:15)
--- NOTE | 2019-10-14 19:25 | NUR ---
ED Nurse Note: Pt taken to CT.
--- NOTE | 2019-10-14 19:36 | NUR ---
ED Nurse Note: Pt returned from CT.
--- NOTE | 2019-10-14 19:43 | Diagnostic Imaging Report ---
Indication: Headache Technique: Contiguous 5 mm thick transaxial imaging of the head obtained in a Siemens Sensation [address] scanner. Soft tissue and bone windows generated. Automatic Exposure Control was utilized. Total Dose length Product (DLP): 1018.8mGycm CT Dose Index Volume (CTDIvol): 53.4 mGy Comparison: 06/05/2017 Findings: There is mild prominence of the ventricles, basal cisterns, and cerebral sulci consistent with atrophy. Mild, nonspecific, white matter hypoattenuation is noted throughout the brain consistent with chronic small vessel disease. There is no midline shift, edema, acute hemorrhage, mass effect, or abnormal extra-axial fluid collections. Bones are unremarkable. Impression: No acute intracranial bleed, mass effect or edema. Mild atrophy of the brain. Nonspecific white matter hypoattenuation probably due to chronic small vessel disease. [facility] has communicated the preliminary results to the Emergency Department. Their findings are largely concordant with this report. The CT scanner at [facility] is accredited by the [employer] and the scans are performed using dose optimization techniques as appropriate to a performed exam including Automatic Exposure control.
[2019-10-14 19:55] VITALS: BP 178/113
[2019-10-14 21:20] VITALS: BP 179/99
--- NOTE | 2019-10-14 21:30 | NUR ---
ED Nurse Note: Pt resting comfortably in bed at this time. No acute distress noted. Will continue to monitor.
--- NOTE | 2019-10-14 22:00 | NUR ---
ED Nurse Note: Per pt, he has not taken any daily medications in months due to insurance reasons.
[2019-10-14 22:25] VITALS: BP 177/103
--- NOTE | 2019-10-14 23:00 | NUR ---
ED Nurse Note: Pt able to ambulate to restroom with steady gait. No acute distress noted. Pt provided with warm blanket for comfort. Will continue to monitor. ERMD aware of BP.
[2019-10-15] VITALS (12 sets, daily range): BP systolic 157–202; BP diastolic 93–129
--- NOTE | 2019-10-15 00:05 | NUR ---
ED Nurse Note: Pt is resting comfortably in bed at this time, on his cell phone. Pt vitals stable for pt as charted, ERMD aware of pt. Pt is in no acute distress. Will continue to monitor.
--- NOTE | 2019-10-15 01:00 | NUR ---
ED Nurse Note: Pt is sleeping in bed at this time. No acute distress noted. Will continue to monitor pt.
--- NOTE | 2019-10-15 03:00 | NUR ---
ED Nurse Note: Pt still sleeping at this time, no acute distress noted. Vitals are noted as charted. Will continue to monitor.
--- NOTE | 2019-10-15 04:45 | NUR ---
ED Nurse Note: Pt sleeping at this time, no signs of acute distress noted. Pt vitals stable, will continue to monitor pt.
--- NOTE | 2019-10-15 07:12 | NUR ---
HAND-OFF: Report given to MORGAN Hilton and endorsed plan of care, no acute distress noted on pt.
--- NOTE | 2019-10-15 08:30 | NUR ---
ED Nurse Note: Patient was admited to TELE due to CP,SOB, HTN. Patient was transfered to the unit via gurney, by ACLS protocol, with all belongings. Patient AAO x4, VSS BP 161/97 other VSS at this time, sin is warm to touch.
--- NOTE | 2019-10-15 08:30 | NUR ---
NURSE NOTES: Pt transferred from ED via rney with 2 RN. Received report from Lida MORA. Pt awake and orientedx4. No c/o pain at this time. BP noted with 201/120 will follow up the BP after PRN clonidine given. IV site in right forearm 22G SL patent and asymptomatic. On room air and O2 saturating with 98% on room air. Side railsx2 up for safety. Call light within easy reach. Pt came with $ 150 [place] and credit cards but the patient refused to keep them in the safety box. All belongings reviewed with ED RN and the patient and pt signed the belonging list. Will continue to plan of care.
[2019-10-15] MEDS ORDERED: LOSARTAN POTAS100 MG ORAL (08:58)
[2019-10-15] MEDS ORDERED: METFORMIN HCL850 M1 ORAL (08:58)
[2019-10-15] MEDS ORDERED: CARVEDILOL25 MG ORAL (08:58)
[2019-10-15] MEDS ORDERED: FENOFIBRATE145 M1 ORAL (08:58)
[2019-10-15] MEDS ORDERED: Levemir Flexpen SUBQ SCH (09:00)
[2019-10-15] MEDS ORDERED: GLIMEPIRIDE4 MG ORAL (09:12)
[2019-10-15] MEDS ORDERED: VASCEPA1 GM PO (09:13)
--- NOTE | 2019-10-15 11:25 | Cardiac Electrophysiology PN ---
Subjective Subjective [id number] Objective Last 24 Hour Vital Signs Date Time Temp Pulse Resp B/P (MAP) Pulse Ox O2 Delivery O2 Flow Rate FiO2 10/15/19 10:55 80 18 160/105 (123) 97 10/15/19 09:41 80 160/110 (127) 10/15/19 09:00 Room Air 10/15/19 08:37 202/129 10/15/19 08:32 Room Air 10/15/19 08:30 98.1 79 18 161/97 98 Room Air 21 10/15/19 08:30 98.1 88 18 202/129 (153) 98 10/15/19 08:30 98.1 79 18 161/97 98 Room Air 21 10/15/19 08:26 96 10/15/19 06:15 98.3 74 20 168/101 97 Room Air 21 10/15/19 04:45 98.3 67 12 160/104 99 Room Air 21 10/15/19 03:00 98.3 81 18 160/96 99 Room Air 10/15/19 00:06 85 173/111 10/15/19 00:05 98.3 85 20 173/111 100 Room Air 10/14/19 22:25 98.1 90 20 177/103 100 Room Air 21 10/14/19 21:20 98.1 95 12 179/99 99 Room Air 21 10/14/19 19:55 98.1 102 12 178/113 99 Room Air 10/14/19 19:49 98.3 10/14/19 19:35 110 18 100 Room Air 21 107 18 99 10/14/19 19:17 206/117 10/14/19 19:10 98.1 100 18 206/117 99 Room Air 10/14/19 18:38 201/123 10/14/19 18:23 98.1 10/14/19 17:52 201/123 10/14/19 17:40 95 18 Room Air 10/14/19 17:40 98.1 95 18 201/123 95 Room Air 10/14/19 17:19 98.1 95 18 201/123 (149) 95 Room Air Laboratory Tests Test 10/14/19 17:40 10/14/19 20:20 10/15/19 01:40 10/15/19 10:25 White Blood Count 8.4 K/UL (4.8-10.8) Red Blood Count 6.01 M/UL (4.70-6.10) Hemoglobin 17.6 G/DL (14.2-18.0) Hematocrit 48.1 % (42.0-52.0) Mean Corpuscular Volume 80 FL (80-99) Mean Corpuscular Hemoglobin 29.4 PG (27.0-31.0) Mean Corpuscular Hemoglobin Concent 36.7 G/DL (32.0-36.0) H Red Cell Distribution Width 10.2 % (11.6-14.8) L Platelet Count 259 K/UL (150-450) Mean Platelet Volume 7.6 FL (6.5-10.1) Neutrophils (%) (Auto) 53.7 % (45.0-75.0) Lymphocytes (%) (Auto) 36.3 % (20.0-45.0) Monocytes (%) (Auto) 7.4 % (1.0-10.0) Eosinophils (%) (Auto) 1.1 % (0.0-3.0) Basophils (%) (Auto) 1.5 % (0.0-2.0) Sodium Level 136 MMOL/L (136-145) Potassium Level 3.2 MMOL/L (3.5-5.1) L Chloride Level 98 MMOL/L (98-107) Carbon Dioxide Level 28 MMOL/L (21-32) Anion Gap 10 mmol/L (5-15) Blood Urea Nitrogen 25 mg/dL (7-18) H Creatinine 1.3 MG/DL (0.55-1.30) Estimat Glomerular Filtration Rate > 60 mL/min (>60) Glucose Level 415 MG/DL (74-106) H Calcium Level 9.6 MG/DL (8.5-10.1) Total Bilirubin 0.3 MG/DL (0.2-1.0) Aspartate Amino Transf (AST/SGOT) 25 U/L (15-37) Alanine Aminotransferase (ALT/SGPT) 66 U/L (12-78) Alkaline Phosphatase 70 U/L (46-116) Troponin I 0.043 ng/mL (0.000-0.056) 0.075 ng/mL (0.000-0.056) Total Protein 7.6 G/DL (6.4-8.2) Albumin 3.5 G/DL (3.4-5.0) Globulin 4.1 g/dL Albumin/Globulin Ratio 0.9 (1.0-2.7) L Urine Opiates Screen Negative (NEGATIVE) Urine Barbiturates Screen Negative (NEGATIVE) Phencyclidine (PCP) Screen Negative (NEGATIVE) Urine Amphetamines Screen Negative (NEGATIVE) Urine Benzodiazepines Screen Negative (NEGATIVE) Urine Cocaine Screen Negative (NEGATIVE) Urine Marijuana (THC) Screen Positive (NEGATIVE) H Hemoglobin A1c 9.3 % (4.3-6.0) H Microbiology Date/Time Source Procedure Growth Status 10/14/19 17:40 Nasal Nares - Final Complete 10/14/19 17:40 Nasal Nares - Final Complete Yasmany Haywood MD Oct 15, 2019 11:25
[2019-10-15] MEDS ORDERED: Heparin 25,000u/D5W 500ml 500 ML IV SCH ×2 (11:30→13:00)
[2019-10-15] MEDS ORDERED: NovoLOG Insulin Flexpen SUBQ SCH (11:30)
--- NOTE | 2019-10-15 11:45 | NUR ---
NURSE NOTES: Dr. Haywood ordered for the patient to transfer to SDU for heparin drip and transfer to [facility] ordered for cardiac cath due to elevated ST on EKG and elevated trop-I. Patient denied chest pain or SOB.
[2019-10-15] MEDS ORDERED: Aspirin EC 325mg tab ORAL SCH (12:00)
[2019-10-15] MEDS ORDERED: Losartan 50mg tab ORAL SCH (12:00)
[2019-10-15] MEDS ORDERED: Carvedilol 25mg Tab ORAL SCH (12:00)
--- NOTE | 2019-10-15 12:08 | NUR ---
TRANSFER UPDATE TRANSFER ORDER NOTED MD NEEDS TO CALL [facility] AND PLACE PATIENT ON LIST [employer] DEVEL[employer] FAXED FACESHEET TO [facility] T: [phone] F: [phone] [facility] WILL RUN FINANCIAL'S AND CALL US IF PATIENT IS ACCEPTED
--- NOTE | 2019-10-15 12:14 | NUR ---
CASE MANAGEMENT:REVIEW 10/15/19 34 YR OLD MALE WALKED IN TO ER CC: COUGHING,BODY ACHES AND SOB. SI: HYPERGLYCEMIA. HTN URGENCY. RESPIRATORY ILLNESS 98.1 95 18 201/123 95% ON RA TROPONIN(+)0.075 IS:1L NS BOLUS IV TORADOL IV INSULIN IV HYDRALAZINE X2 IV LABETALOL X2 CLONIDINE PO NORVASC PO CT HEAD CXR : TO TELEMETRY DCP: FROM HOME PLAN: TRANSFER TO [facility] FOR CARDIAC CATH
[2019-10-15] MEDS: Aspirin EC 325mg tab ORAL SCH (12:20)
--- NOTE | 2019-10-15 12:30 | NUR ---
HAND-OFF: Report given to Darling MORA. Pt remains stable. Heparin drip will be started as ordered.
--- NOTE | 2019-10-15 12:30 | NUR ---
NURSE NOTES: received pt from 2E, awake, alert, oriented, vital signs stable, troponin 0.075, no co chest pain, no SOB, skin warm and dry to touch, intact, ambulatory, bed inn low position, call light within reach.
--- NOTE | 2019-10-15 12:52 | Diagnostic Imaging Report ---
Indication: Dyspnea Comparison: 05/31/2016 A single view chest radiograph was obtained. Findings: Cardiomediastinal appearance is within normal limits for age. The lungs are clear. Pulmonary vascularity is appropriate. The diaphragmatic contour is smooth and costophrenic angles are sharp. No pleural effusions are identified. The bones are unremarkable. Impression: No acute findings
--- NOTE | 2019-10-15 13:00 | NUR ---
NURSE NOTES: last troponin 0.063, dr. Haywood notified.
[2019-10-15 13:07] LABS: BASOPHILS % (AUTO) 1.5 % (0.0-2.0); EOSINOPHILS % (AUTO) 1.4 % (0.0-3.0); LYMPHOCYTES % (AUTO) 35.6 % (20.0-45.0); MEAN CORPUSCULAR VOLUME 80 FL (80-99); MONOCYTES % (AUTO) 7.5 % (1.0-10.0); NEUTROPHILS % (AUTO) 54.1 % (45.0-75.0); PLATELET COUNT 245 K/UL (150-450); RED BLOOD COUNT 6.21 M/UL (4.70-6.10); RED CELL DISTRIBUTION WIDTH 10.4 % (11.6-14.8); WHITE BLOOD COUNT 6.7 K/UL (4.8-10.8)
[2019-10-15 13:43] LABS: HEMOGLOBIN 18.1 G/DL (14.2-18.0)
--- NOTE | 2019-10-15 15:00 | Consultation ---
DATE OF CONSULTATION: 10/15/2019 ENDOCRINOLOGY CONSULTATION CONSULTING PHYSICIAN: Jose Youngblood M.D. REFERRING PHYSICIAN: Kole Turner M.D. REASON FOR CONSULTATION: Diabetes management. HISTORY OF PRESENT ILLNESS: The patient is a 34-year-old male with history of diabetes, hypertension, pancreatitis who presented to the hospital with chest discomfort, elevated blood pressure. Has not been taking his medications for the past few months since lapse in insurance, which is now resumed. On presentation, the first troponin was negative. The second one is mildly positive at 0.075 and the patient is admitted to telemetry for observation and treatment. Glucose on presentation was 450. OUTPATIENT MEDICATIONS: None. PAST MEDICAL HISTORY: 1. Diabetes. 2. Hypertension. 3. Pancreatitis. 4. Hypertriglyceridemia. PAST SURGICAL HISTORY: Not reported. SOCIAL HISTORY: No smoking, alcohol, or drug use. ALLERGIES: To morphine. REVIEW OF SYSTEMS: As per HPI. LABORATORY DATA: Sodium 136, potassium 3.2, chloride 98, bicarb 28, BUN 25, creatinine 1.3, glucose of 450, calcium 9.6. Tox screen is positive for marijuana, THC. WBC 8, hemoglobin 17, hematocrit 48, platelets of 259. PHYSICAL EXAMINATION: VITAL SIGNS: Blood pressure 168/101, heart rate 74, temperature 98.3. HEENT: Pupils are equal and reactive to light. Sclerae anicteric. NECK: No JVD. No thyromegaly. No bruit. LUNGS: Clear. HEART: Regular rate and rhythm. ABDOMEN: Positive bowel sounds. EXTREMITIES: No clubbing, cyanosis, or edema. DIAGNOSES: 1. Hypertension urgency. 2. Diabetes, out of control without DKA. 3. Noncompliance with medication. PLAN: 1. Start Levemir 10 units daily. 2. Check A1c. 3. Glucose monitoring before meals and at bedtime. 4. NovoLog coverage before meals and at bedtime. 5. Hypoglycemia protocol. 6. Diet should be diabetic, cardiac. 7. Further adjustment according to blood glucose values. Thank you, Dr. Turner, for the courtesy of this consultation. Jose Youngblood M.D. DR: RN/SEDA JOB#: [id number] CC: MARIE
--- NOTE | 2019-10-15 16:41 | NUR ---
*-* INSURANCE *-* ALL CLINICALS AND REVIEWS HAVE BEEN FAXED TO: no ref# yet #[phone] fax#[phone]
[2019-10-15] MEDS: NovoLOG Insulin Flexpen SUBQ SCH ×2 (17:09→21:00)
--- NOTE | 2019-10-15 17:53 | Consultation ---
Consult Note Consult Note I was asked to evaluate the patient at the request of Dr. Turner for blood pressure management Upper Respiratory complaints was what brought the patient to emergency room HPI: 34-year-old male presents for evaluation of myalgias, cough and diarrhea. Symptoms began 2 days ago. He notes a progressive and nonproductive cough, chest congestion and mild shortness of breath. Cough is been working sitting all weekend. He denies fever or chills. Denies nasal congestion or sore throat. He denies abdominal pain or nausea but does report multiple episodes of diarrhea. Denies hematuria, dysuria, hematochezia or melena. Denies flank pain. States multiple sick contacts at the office. No known hospitalization and no known travel or exposure to persons with recent travel. Patient also arrives hypertensive. He states he had a lapse in insurance at the end of last year but now is returned. He is no longer following up with his PMD due to the lab labs and reinsurance has not taken his antihypertensives for several months. He denies any headache, visual changes, numbness or tingling at this time. PMH: Pancreatitis, hypertension and diabetes mellitus Allergies: Morphine Hx Hypertension: Yes Hx Diabetes: Yes Hx Gastrointestinal Problems: Yes Interviewed Examined Data reviewed . Assessment/Plan Hypertensive urgency Diabetes mellitus Obesity Upper respiratory symptoms Elevated troponin Compliant with medication Ejection fraction 45 to 50% Urine analysis Check lipid panel Blood pressure medication and dose adjustment Blood sugar management Oral potassium supplement Monitor electrolytes Continue per cardiology Per orders Terry Dsouza MD Oct 15, 2019 17:53
[2019-10-15] MEDS: Docusate 100mg cap ORAL SCH (18:00)
[2019-10-15] MEDS: Nitroglycerin Patch 0.4mg TDERMAL SCH (18:45)
[2019-10-15] MEDS: HydrALAZINE 25mg tab ORAL SCH (18:45)
--- NOTE | 2019-10-15 19:30 | Consultation ---
DATE OF CONSULTATION: 10/15/2019 INFECTIOUS DISEASE CONSULTATION CONSULTING PHYSICIAN: Louis Alonso M.D. PRIMARY ATTENDING PHYSICIAN: Kole Turner M.D. REASON FOR CONSULT: Acute viral syndrome. HISTORY OF PRESENT ILLNESS: This is a 34-year-old white male admitted today complaining of myalgia, cough that is dry, and mild diarrhea. The patient's symptoms started three or four days ago and they were improving. The patient was found to have hyperglycemia and hypertensive urgency. PAST MEDICAL HISTORY: Significant for diabetes and hypertension. The patient was not very compliant with medication, attributed to change of insurance. ALLERGIES: Allergic to morphine. MEDICATIONS: Fenofibrate, insulin, losartan, atorvastatin, carvedilol, clonidine, Levemir insulin. SOCIAL HISTORY: Originally from [place]. , has no children. Nonsmoker. Uses marijuana occasionally. FAMILY HISTORY: Father has diabetes and high blood pressure. REVIEW OF SYSTEMS: No fever. No chills. He had dry cough. No generalized muscle weakness. Mild diarrhea. PHYSICAL EXAMINATION: VITAL SIGNS: Temperature 97.9, pulse 83, and blood pressure 160/93. Blood pressure at the time of admission was 201/123. GENERAL APPEARANCE: Seems to be well developed, obese. HEAD AND NECK: No oral lesion. He has nasal congestion. HEART: Normal rate. LUNGS: Clear. ABDOMEN: Soft. EXTREMITIES: No edema. LABORATORY DATA: WBC 6.7, hemoglobin 18.1, hematocrit 50, and platelets 249,000. Sodium 136, potassium 3.2, chloride 98, bicarbonate 28, BUN 25, and creatinine 1.3. Glucose at the time of admission 415. Hemoglobin A1c 9.3. Troponin is elevated 0.075. Urine toxicology was positive for THC. Head CT showed no acute intracranial bleeding, mass effect, or edema. Mild atrophy. Chest x-ray shows no acute finding. IMPRESSION: Acute viral upper respiratory syndrome. He has hypertensive urgency. He has diabetes mellitus with hyperglycemia. He has polycythemia. He has history of pancreatitis in the past. He has elevated troponin. RECOMMENDATION: Observe off antibiotics. We will follow up echocardiogram and collet maker recommendation. At the end of my exam, I thank Dr. Turner for involving me in the care of this patient. Louis Alonso M.D. DR: BOBO JOB#: [id number] CC: MARIE
[2019-10-15 19:56] LABS: APPEARANCE,URINE CLEAR; BILIRUBIN, URINE NEGATIVE (NEGATIVE); GLUCOSE, URINE (UA) 4+ (NEGATIVE); KETONES,URINE NEGATIVE (NEGATIVE); LEUKOCYTE ESTERASE ,URINE NEGATIVE (NEGATIVE); NITRITE,URINE NEGATIVE (NEGATIVE); PH,URINE 6.5 (4.5-8.0); PROTEIN,URINE 3+ (NEGATIVE); UROBILINOGEN,URINE NORMAL MG/DL (0.0-1.0)
--- NOTE | 2019-10-15 19:57 | NUR ---
HAND-OFF: Report given to ESTELLE MORA, no co chest pain, continue monitoring.
[2019-10-15 19:58] LABS: COLOR,URINE YELLOW
--- NOTE | 2019-10-15 20:00 | NUR ---
received report from gibson timmons pt awake and alert no c/o off pain or sob bs 255 insulin coverage given as order
--- NOTE | 2019-10-15 20:15 | Consultation ---
DATE OF CONSULTATION: 10/15/2019 CARDIOLOGY CONSULTATION CONSULTING PHYSICIAN: Yasmany Haywood M.D. REFERRING PHYSICIAN: Kole Turner M.D. REASON FOR CONSULTATION: History of hypertension. HISTORY OF PRESENT ILLNESS: The patient is a 34-year-old gentleman with history of hypertension and diabetes who ran out of his medications as he has lapsed his insurance who presented to the emergency room for myalgia, cough, and diarrhea episode two days ago. The patient denies any prior myocardial infarction, coronary artery disease. The patient is complaining of shortness of breath and cough. The patient is no longer following with his primary care doctor and has not been taking his antihypertensive. His blood pressure was as high as 202/129. REVIEW OF SYSTEMS: Review of Systems was negative other than what is mentioned in history of present illness. PAST MEDICAL HISTORY: As mentioned above. FAMILY HISTORY: Noncontributory. SOCIAL HISTORY: Denies smoking or using any drugs even though he uses marijuana. PHYSICAL EXAMINATION: VITAL SIGNS: Show blood pressure 160/105, pulse 80, respirations 18, and he is afebrile. HEAD AND NECK: Showed no JVD or carotid bruits. LUNGS: Clear. CARDIOVASCULAR: Regular S1 and S2 with no gallop or murmur. ABDOMEN: Soft. EXTREMITIES: No pitting edema. LABORATORY AND DIAGNOSTIC DATA: Labs show initial troponin was negative, subsequent troponin 0.075. Sodium 136, potassium 3.2, BUN of 25, creatinine 1.3, and glucose of 415. Hemoglobin A1c 9.3. White count of 8.4, hemoglobin 17.7, hematocrit 48.1, and platelet count is 259. Urine toxicology is positive for marijuana. ASSESSMENT AND PLAN: 1. Non-ST elevation myocardial infarction in a patient with uncontrolled diabetes and hypertension. EKG shows inferolateral ST depression as well as first-degree AV block. He does not have any ST elevation. Continue Coreg. I will add aspirin and Lipitor to his medical regimen. I will start him on heparin drip until the followup troponin comes back lower. Stat echocardiogram was also ordered. The patient will need to be transferred for cardiac catheterization and coronary intervention. 2. Accelerated hypertension. Resume Coreg 25 mg b.i.d. and also Cozaar 100 mg daily. He is also on p.r.n. clonidine. 3. Hyperlipidemia, on TriCor. 4. Uncontrolled diabetes. Hemoglobin A1c of more than 9, on insulin per Dr. Youngblood. 5. First-degree AV block. Thank you very much for allowing me to participate in the care of this patient. Please do not hesitate to contact me for any questions regarding my evaluation. Yasmany Haywood M.D. DR: Royal JOB#: [id number] CC:
[2019-10-15] MEDS: Carvedilol 25mg Tab ORAL SCH (21:00)
[2019-10-15] MEDS ORDERED: Atorvastatin 80mg tab ORAL SCH ×2 (21:00)
--- NOTE | 2019-10-15 21:30 | History and Physical Report ---
DATE OF ADMISSION: 10/15/2019 HISTORY OF PRESENT ILLNESS: The patient has history of diabetes and hypertension. He has been off his medications for several months due to lapse of his insurance. The patient came in with upper respiratory symptoms. Influenza swab was negative. The patient had cough, shortness of breath, and fatigue, lethargic for a couple of days, has history of smoking. The patient also was hypertensive. He is admitted for elevated blood pressure and hypertensive urgency. The patient denies any change in vision. Does have mild headache. Denies wheezing. PAST MEDICAL HISTORY: Significant for hyperlipidemia, NIDDM, and hypertension. MEDICATIONS: Ran out of medications. ALLERGIES: Morphine. PAST SURGICAL HISTORY: None. FAMILY HISTORY: Has history of diabetes and hypertension. SOCIAL HISTORY: Has history of smoking. No history of alcohol or drug abuse. REVIEW OF SYSTEMS: HEENT: Denies headaches. RESPIRATORY: Reports shortness of breath and nonproductive cough for a couple of days. No wheezing. CARDIOVASCULAR: Denies chest pain, denies orthopnea. GASTROINTESTINAL: Denies nausea, vomiting, or diarrhea. EXTREMITIES: Denies pain. CENTRAL NERVOUS SYSTEM: No change in speech pattern. Has fatigue and lethargy throughout and feels weak. PHYSICAL EXAMINATION: VITAL SIGNS: Temperature 98.1, pulse is 88, blood pressure is 202/129 initially that is going down. HEENT: PERRLA. NECK: Supple. No lymphadenopathy. CHEST: Clear to auscultation. CARDIOVASCULAR: Regular rate and rhythm. No murmurs or extra sounds. GASTROINTESTINAL: Soft, nontender, nondistended. No organomegaly. EXTREMITIES: No edema. Moves all four extremities. Sensory intact to light touch. Reflexes on both sides. LABORATORY DATA: WBC of 8.4, hemoglobin 17.6, platelets of 259. Sodium 136, potassium 3.2, BUN of 25, creatinine 1.3, glucose of 415. Troponin is 0.043. ASSESSMENT AND PLAN: Hypokalemia, borderline elevated troponin, uncontrolled diabetes as well as hypertensive urgency. I have asked Dr. Dsouza, Dr. Youngblood, as well as Dr. Louis Alonso see the patient for the upper respiratory symptoms as well as for the management of the blood pressure as well as for the management of the sugar. We will monitor the patient closely. Ali Radha Turner DR: LUCRECIA JOB#: [id number] CC:
[2019-10-16] VITALS (7 sets, daily range): BP systolic 137–157; BP diastolic 78–101
[2019-10-16] MEDS: HydrALAZINE 25mg tab ORAL SCH ×2 (00:14→06:19)
[2019-10-16 05:24] LABS: BASOPHILS % (AUTO) 1.2 % (0.0-2.0); EOSINOPHILS % (AUTO) 1.5 % (0.0-3.0); HEMOGLOBIN 16.9 G/DL (14.2-18.0); LYMPHOCYTES % (AUTO) 36.8 % (20.0-45.0); MEAN CORPUSCULAR VOLUME 81 FL (80-99); MONOCYTES % (AUTO) 7.7 % (1.0-10.0); NEUTROPHILS % (AUTO) 52.8 % (45.0-75.0); PLATELET COUNT 226 K/UL (150-450); RED BLOOD COUNT 5.81 M/UL (4.70-6.10); RED CELL DISTRIBUTION WIDTH 10.4 % (11.6-14.8)
[2019-10-16 06:01] LABS: ALANINE AMINOTRANSFERASE 46 U/L (12-78); ALBUMIN 3.1 G/DL (3.4-5.0); ALBUMIN/GLOBULIN RATIO 0.9 (1.0-2.7); ALKALINE PHOSPHATASE 56 U/L (46-116); ANION GAP 10 mmol/L (5-15); ASPARTATE AMINO TRANSFERASE 22 U/L (15-37); BILIRUBIN,TOTAL 0.7 MG/DL (0.2-1.0); BLOOD UREA NITROGEN 21 mg/dL (7-18); CARBON DIOXIDE 26 MMOL/L (21-32); CHLORIDE 101 MMOL/L (98-107); CHOLESTEROL 229 MG/DL (< 200); CREATININE 1.1 MG/DL (0.55-1.30); HDL CHOLESTEROL 41 MG/DL (40-60); SODIUM 137 MMOL/L (136-145); TRIGLYCERIDES 205 MG/DL (30-150)
[2019-10-16 06:02] LABS: PHOSPHORUS 2.8 MG/DL (2.5-4.9)
[2019-10-16] MEDS: NovoLOG Insulin Flexpen SUBQ SCH ×6 (06:24→17:44)
--- NOTE | 2019-10-16 06:29 | General Progress Note ---
Assessment/Plan Problem List: (1) Diabetes mellitus out of control ICD Codes: E11.65 - Type 2 diabetes mellitus with hyperglycemia SNOMED: 93175073, 985219531 (2) Chronic pancreatitis ICD Codes: K86.1 - Other chronic pancreatitis SNOMED: 250933259 (3) Hypertensive urgency ICD Codes: I16.0 - Hypertensive urgency SNOMED: 792343095 Assessment/Plan: increase Levemir to 18 units daily add Novolog 6 units ac tid continue NISS ac / hs I won't add Metformin since cardiac cath is anticipated Subjective Allergies: Coded Allergies: MORPHINE (Verified Allergy, Unknown, HIVES, 05/05/09) All Systems: reviewed and negative except above Subjective events noted glucose values improved but still elevated plan for transfer to [facility] for cardiac cath noted Item Value Date Time Bedside Blood Glucose 242 mg/dl H 10/16/19 0624 Bedside Blood Glucose 255 mg/dl H 10/15/19 2100 Bedside Blood Glucose 231 mg/dl H 10/15/19 1709 Objective Last 24 Hour Vital Signs Date Time Temp Pulse Resp B/P (MAP) Pulse Ox O2 Delivery O2 Flow Rate FiO2 10/16/19 06:19 158/86 10/16/19 02:00 97.9 73 18 157/101 (119) 99 10/16/19 00:14 164/112 10/16/19 00:00 97.9 73 18 150/100 (117) 99 10/16/19 00:00 77 10/15/19 21:00 Room Air 10/15/19 21:00 77 164/112 10/15/19 20:00 97.9 73 18 157/101 (119) 99 10/15/19 20:00 77 10/15/19 18:45 164/112 10/15/19 18:45 164/112 10/15/19 18:00 97.9 72 19 164/112 (129) 95 10/15/19 16:00 94 10/15/19 16:00 97.9 72 19 164/112 (129) 95 10/15/19 12:30 97.9 83 20 160/93 (115) 96 10/15/19 12:00 98.1 83 20 168/106 (126) 98 10/15/19 12:00 160/105 10/15/19 12:00 80 160/105 10/15/19 10:55 80 18 160/105 (123) 97 10/15/19 09:41 80 160/110 (127) 10/15/19 09:00 Room Air 10/15/19 08:37 202/129 10/15/19 08:32 Room Air 10/15/19 08:30 98.1 79 18 161/97 98 Room Air 21 10/15/19 08:30 98.1 88 18 202/129 (153) 98 10/15/19 08:30 98.1 79 18 161/97 98 Room Air 21 10/15/19 08:26 96 Intake and Output 10/15/19 10/16/19 19:00 07:00 Intake Total 450 ml Output Total 1200 ml Balance -750 ml Intake Oral 450 ml Output Urine Total 1200 ml Laboratory Tests 10/15/19 10:25: Hemoglobin A1c 9.3H 10/15/19 11:55: White Blood Count 6.7, Red Blood Count 6.21H, Hemoglobin 18.1*H, Hematocrit 50.0 , Mean Corpuscular Volume 80, Mean Corpuscular Hemoglobin 29.1, Mean Corpuscular Hemoglobin Concent 36.2H, Red Cell Distribution Width 10.4L, Platelet Count 245, Mean Platelet Volume 6.9, Neutrophils (%) (Auto) 54.1, Lymphocytes (%) (Auto) 35.6, Monocytes (%) (Auto) 7.5, Eosinophils (%) (Auto) 1.4, Basophils (%) (Auto) 1.5, Activated Partial Thromboplast Time 25, Troponin I 0.063H 10/15/19 19:00: Urine Color Yellow, Urine Appearance Clear, Urine pH 6.5, Urine Specific [place] 1.015, Urine Protein 3+H, Urine Glucose (UA) 4+H, Urine Ketones Negative , Urine Blood Negative, Urine Nitrite Negative, Urine Bilirubin Negative, Urine Urobilinogen Normal, Urine Leukocyte Esterase Negative, Urine RBC 0-2H, Urine WBC 0-2, Urine Squamous Epithelial Cells None, Urine Bacteria Few 10/15/19 19:15: Troponin I 0.045 10/16/19 03:20: White Blood Count 7.0, Red Blood Count 5.81, Hemoglobin 16.9, Hematocrit 47.0, Mean Corpuscular Volume 81, Mean Corpuscular Hemoglobin 29.1, Mean Corpuscular Hemoglobin Concent 36.0, Red Cell Distribution Width 10.4L, Platelet Count 226, Mean Platelet Volume 7.0, Neutrophils (%) (Auto) 52.8, Lymphocytes (%) (Auto) 36.8, Monocytes (%) (Auto) 7.7, Eosinophils (%) (Auto) 1.5, Basophils (%) (Auto ) 1.2, Sodium Level 137, Potassium Level 3.0L, Chloride Level 101, Carbon Dioxide Level 26, Anion Gap 10, Blood Urea Nitrogen 21H, Creatinine 1.1, Estimat Glomerular Filtration Rate > 60, Glucose Level 263#H, Uric Acid 6.4, Calcium Level 9.0, Phosphorus Level 2.8, Magnesium Level 1.6L, Total Bilirubin 0.7, Aspartate Amino Transf (AST/SGOT) 22, Alanine Aminotransferase (ALT/SGPT) 46, Alkaline Phosphatase 56, Troponin I 0.037, C-Reactive Protein, Quantitative 0.6, Pro-B-Type Natriuretic Peptide 225H, Total Protein 6.7, Albumin 3.1L, Globulin 3.6, Albumin/Globulin Ratio 0.9L, Triglycerides Level 205H, Cholesterol Level 229H, LDL Cholesterol 161H, HDL Cholesterol 41, Cholesterol/ HDL Ratio 5.6H, Vitamin B12 Level [Pending], Folate [Pending], Thyroid Stimulating Hormone (TSH) 2.091 Height (Feet): 6 Height (Inches): 1.00 Weight (Pounds): 263 General Appearance: no apparent distress Neck: normal alignment Respiratory/Chest: lungs clear Abdomen: normal bowel sounds Pelvis: normal external exam Objective Current Medications Medications (Trade) Dose Ordered Sig/Daljit Route PRN Reason Start Time Stop Time Status Last Admin Dose Admin Acetaminophen (Tylenol) 650 mg Q4H PRN ORAL Mild Pain/Temp > 100.5 10/15/19 15:30 11/14/19 07:29 Aspirin (Ecotrin) 325 mg DAILY ORAL 10/15/19 12:15 11/30/19 08:59 10/15/19 12:20 Atorvastatin Calcium (Lipitor) 80 mg BEDTIME ORAL 10/15/19 21:00 11/14/19 20:59 10/15/19 21:00 Carvedilol (Coreg) 25 mg EVERY 12 HOURS ORAL 10/15/19 21:00 11/14/19 11:59 10/15/19 21:00 Clonidine HCl (Catapres Tab) 0.1 mg Q4H PRN ORAL SBP > 170mmHg 10/15/19 18:00 11/14/19 07:29 Dextrose (Dextrose 50%) 25 ml Q30M PRN IV Hypoglycemia 10/15/19 12:30 11/14/19 07:29 Dextrose (Dextrose 50%) 50 ml Q30M PRN IV Hypoglycemia 10/15/19 12:30 11/14/19 07:29 Docusate Sodium (Colace) 100 mg THREE TIMES A DAY ORAL 10/15/19 18:00 11/14/19 17:59 Fenofibrate (Tricor) 145 mg DAILY ORAL 10/16/19 09:00 11/14/19 11:29 Hydralazine HCl (Apresoline) 25 mg Q6HR ORAL 10/15/19 18:00 11/14/19 17:59 10/16/19 06:19 Insulin Aspart (NovoLOG) BEFORE MEALS AND HS SUBQ 10/15/19 16:30 11/14/19 11:29 10/16/19 06:24 Insulin Detemir (Levemir) 10 units DAILY SUBQ 10/16/19 09:00 11/14/19 08:59 Losartan Potassium (Cozaar) 100 mg DAILY ORAL 10/16/19 09:00 11/14/19 11:59 Nitroglycerin (Ntg) 1 patch Q24H TDERMAL 10/15/19 18:00 11/14/19 17:59 10/15/19 18:45 Pantoprazole (Protonix) 40 mg EVERY 12 HOURS ORAL 10/15/19 21:00 11/14/19 20:59 10/15/19 21:00 Potassium Chloride (K-Dur) 40 meq DAILY ORAL 10/15/19 18:00 11/14/19 17:59 10/15/19 18:46 Jose Youngblood MD Oct 16, 2019 06:29
--- NOTE | 2019-10-16 07:50 | NUR ---
NURSE NOTES: Received report from MORGAN Hall. Pt observed sleeping in bed, easily woken, alert and oriented x4. No c/o pain at this time. IV site in right forearm 22G patent and asymptomatic. O2 saturation 98% on room air. Bed locked and in lowest position. Side rails x2 up for safety. Call light within easy reach. Will continue to plan of care.
--- NOTE | 2019-10-16 07:50 | NUR ---
HAND-OFF: Report given to laura timmons using sbar.
[2019-10-16] MEDS ORDERED: Losartan 50mg tab ORAL SCH (09:00)
[2019-10-16] MEDS ORDERED: Levemir Flexpen SUBQ SCH ×2 (09:00)
[2019-10-16] MEDS ORDERED: Aspirin EC 325mg tab ORAL SCH (09:00)
--- NOTE | 2019-10-16 09:30 | NUR ---
NURSE NOTES: Pt's F/S 215 prior to giving ordered Novolog and Levemir.
[2019-10-16] MEDS: Docusate 100mg cap ORAL SCH ×3 (10:16→17:45)
[2019-10-16] MEDS: Aspirin EC 325mg tab ORAL SCH (10:16)
[2019-10-16] MEDS: Carvedilol 25mg Tab ORAL SCH (10:17)
--- NOTE | 2019-10-16 10:20 | NUR ---
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 98.0 HR 80 RR 20 B/P 157/101 MG 1.6 BNP 225 K 3.0 BUN 21 IS: TRICOR PO COREG PO ASA PO TRANSFER TO [facility] FOR CARDIAC CATH STEP DOWN STATUS
--- NOTE | 2019-10-16 10:52 | NUR ---
*-* INSURANCE *-* ALL CLINICALS AND REVIEWS HAVE BEEN FAXED TO: no ref# yet #[phone] fax#[phone]
[2019-10-16] MEDS ORDERED: Heparin 25,000u/D5W 500ml 500 ML IV SCH (11:30)
--- NOTE | 2019-10-16 11:37 | Cardiac Electrophysiology PN ---
Assessment/Plan Assessment/Plan 1. Non-ST elevation myocardial infarction in a patient with uncontrolled diabetes and hypertension and inferolateral ST depression as well as first-degree AV block. He does not have any ST elevation. Continue Coreg 25 bid aspirin and Lipitor . DCed heparin drip as troponin is down Echocardiogram showed EF 45% Awaiting transfer to [facility] for cardiac catheterization and coronary intervention. 2. Accelerated hypertension. On Coreg 25 mg b.i.d., Cozaar 100 mg daily and Hydralazine 50 q 8. He is also on p.r.n. clonidine. 3. Hyperlipidemia, on TriCor. 4. Uncontrolled diabetes. Hemoglobin A1c of more than 9, on insulin per Dr. Youngblood. 5. First-degree AV block. DW [facility] transfer CTR Subjective Subjective Alert in NAD. No CP or SOB. Awaiting bed at [facility] Objective Last 24 Hour Vital Signs Date Time Temp Pulse Resp B/P (MAP) Pulse Ox O2 Delivery O2 Flow Rate FiO2 10/16/19 10:17 137/78 10/16/19 10:17 66 137/78 10/16/19 09:00 Room Air 10/16/19 08:00 98.2 66 22 137/78 (97) 97 10/16/19 08:00 69 10/16/19 06:19 158/86 10/16/19 04:00 98.0 80 20 157/101 (119) 96 10/16/19 04:00 80 10/16/19 02:00 97.9 73 18 157/101 (119) 99 10/16/19 00:14 164/112 10/16/19 00:00 97.9 73 18 150/100 (117) 99 10/16/19 00:00 77 10/15/19 21:00 Room Air 10/15/19 21:00 77 164/112 10/15/19 20:00 97.9 73 18 157/101 (119) 99 10/15/19 20:00 77 10/15/19 18:45 164/112 10/15/19 18:45 164/112 10/15/19 18:00 97.9 72 19 164/112 (129) 95 10/15/19 16:00 94 10/15/19 16:00 97.9 72 19 164/112 (129) 95 10/15/19 12:30 97.9 83 20 160/93 (115) 96 10/15/19 12:00 98.1 83 20 168/106 (126) 98 10/15/19 12:00 160/105 10/15/19 12:00 80 160/105 Intake and Output 10/15/19 10/16/19 19:00 07:00 Intake Total 1450 ml Output Total 3200 ml Balance -1750 ml Intake Oral 1450 ml Output Urine Total 3200 ml Laboratory Tests Test 10/15/19 11:55 10/15/19 19:00 10/15/19 19:15 10/16/19 03:20 White Blood Count 6.7 K/UL (4.8-10.8) 7.0 K/UL (4.8-10.8) Red Blood Count 6.21 M/UL (4.70-6.10) H 5.81 M/UL (4.70-6.10) Hemoglobin 18.1 G/DL (14.2-18.0) *H 16.9 G/DL (14.2-18.0) Hematocrit 50.0 % (42.0-52.0) 47.0 % (42.0-52.0) Mean Corpuscular Volume 80 FL (80-99) 81 FL (80-99) Mean Corpuscular Hemoglobin 29.1 PG (27.0-31.0) 29.1 PG (27.0-31.0) Mean Corpuscular Hemoglobin Concent 36.2 G/DL (32.0-36.0) H 36.0 G/DL (32.0-36.0) Red Cell Distribution Width 10.4 % (11.6-14.8) L 10.4 % (11.6-14.8) L Platelet Count 245 K/UL (150-450) 226 K/UL (150-450) Mean Platelet Volume 6.9 FL (6.5-10.1) 7.0 FL (6.5-10.1) Neutrophils (%) (Auto) 54.1 % (45.0-75.0) 52.8 % (45.0-75.0) Lymphocytes (%) (Auto) 35.6 % (20.0-45.0) 36.8 % (20.0-45.0) Monocytes (%) (Auto) 7.5 % (1.0-10.0) 7.7 % (1.0-10.0) Eosinophils (%) (Auto) 1.4 % (0.0-3.0) 1.5 % (0.0-3.0) Basophils (%) (Auto) 1.5 % (0.0-2.0) 1.2 % (0.0-2.0) Activated Partial Thromboplast Time 25 SEC (23-33) Troponin I 0.063 ng/mL (0.000-0.056) 0.045 ng/mL (0.000-0.056) 0.037 ng/mL (0.000-0.056) Urine Color Yellow Urine Appearance Clear Urine pH 6.5 (4.5-8.0) Urine Specific [place] 1.015 (1.005-1.035) Urine Protein 3+ (NEGATIVE) H Urine Glucose (UA) 4+ (NEGATIVE) H Urine Ketones Negative (NEGATIVE) Urine Blood Negative (NEGATIVE) Urine Nitrite Negative (NEGATIVE) Urine Bilirubin Negative (NEGATIVE) Urine Urobilinogen Normal MG/DL (0.0-1.0) Urine Leukocyte Esterase Negative (NEGATIVE) Urine RBC 0-2 /HPF (0 - 0) H Urine WBC 0-2 /HPF (0 - 0) Urine Squamous Epithelial Cells None /LPF (NONE/OCC) Urine Bacteria Few /HPF (NONE) Sodium Level 137 MMOL/L (136-145) Potassium Level 3.0 MMOL/L (3.5-5.1) L Chloride Level 101 MMOL/L (98-107) Carbon Dioxide Level 26 MMOL/L (21-32) Anion Gap 10 mmol/L (5-15) Blood Urea Nitrogen 21 mg/dL (7-18) H Creatinine 1.1 MG/DL (0.55-1.30) Estimat Glomerular Filtration Rate > 60 mL/min (>60) Glucose Level 263 MG/DL (74-106) #H Uric Acid 6.4 MG/DL (2.6-7.2) Calcium Level 9.0 MG/DL (8.5-10.1) Phosphorus Level 2.8 MG/DL (2.5-4.9) Magnesium Level 1.6 MG/DL (1.8-2.4) L Total Bilirubin 0.7 MG/DL (0.2-1.0) Aspartate Amino Transf (AST/SGOT) 22 U/L (15-37) Alanine Aminotransferase (ALT/SGPT) 46 U/L (12-78) Alkaline Phosphatase 56 U/L (46-116) C-Reactive Protein, Quantitative 0.6 mg/dL (0.00-0.90) Pro-B-Type Natriuretic Peptide 225 pg/mL (0-125) H Total Protein 6.7 G/DL (6.4-8.2) Albumin 3.1 G/DL (3.4-5.0) L Globulin 3.6 g/dL Albumin/Globulin Ratio 0.9 (1.0-2.7) L Triglycerides Level 205 MG/DL (30-150) H Cholesterol Level 229 MG/DL (< 200) H LDL Cholesterol 161 mg/dL (<100) H HDL Cholesterol 41 MG/DL (40-60) Cholesterol/HDL Ratio 5.6 (3.3-4.4) H Vitamin B12 Level 818 PG/ML (193-986) Folate 16.9 NG/ML (8.6-58.9) Thyroid Stimulating Hormone (TSH) 2.091 uiU/mL (0.358-3.740) Microbiology Date/Time Source Procedure Growth Status 10/14/19 17:40 Nasal Nares - Final Complete 10/14/19 17:40 Nasal Nares - Final Complete Objective HEAD AND NECK: Showed no JVD or carotid bruits. LUNGS: Clear. CARDIOVASCULAR: Regular S1 and S2 with no gallop or murmur. ABDOMEN: Soft. EXTREMITIES: No pitting edema. Yasmany Haywood MD Oct 16, 2019 11:37
--- NOTE | 2019-10-16 11:56 | Nephrology Progress Note ---
Assessment/Plan Problem List: (1) Hypertensive urgency (2) High triglycerides (3) Hyperglycemia (4) NSTEMI (non-ST elevation myocardial infarction) Assessment: Ejection fraction of 40 to 45% Assessment Hypertensive urgency Diabetes mellitus Obesity Upper respiratory symptoms Elevated troponin Compliant with medication Ejection fraction 45 to 50% Plan Non-ST elevation myocardial infarction in a patient with uncontrolled diabetes and hypertension and inferolateral ST depression as well as first-degree AV block. He does not have any ST elevation. Continue Coreg 25 bid aspirin and Lipitor . DCed heparin drip as troponin is down Echocardiogram showed EF 45% Awaiting transfer to [facility] for cardiac catheterization and coronary intervention. Hypertensive urgency Diabetes mellitus Obesity Upper respiratory symptoms Elevated troponin Compliant with medication Ejection fraction 45 to 50% Per cardiology As blood pressure medication Add fish oil to medications Potassium and magnesium supplement Urine analysis lipid panel noted Blood pressure medication and dose adjustment Blood sugar management Monitor electrolytes Continue per cardiology Per orders Subjective ROS Limited/Unobtainable: No Constitutional: Reports: malaise Objective Objective Last 24 Hour Vital Signs Date Time Temp Pulse Resp B/P (MAP) Pulse Ox O2 Delivery O2 Flow Rate FiO2 10/16/19 10:17 137/78 10/16/19 10:17 66 137/78 10/16/19 09:00 Room Air 10/16/19 08:00 98.2 66 22 137/78 (97) 97 10/16/19 08:00 69 10/16/19 06:19 158/86 10/16/19 04:00 98.0 80 20 157/101 (119) 96 10/16/19 04:00 80 10/16/19 02:00 97.9 73 18 157/101 (119) 99 10/16/19 00:14 164/112 10/16/19 00:00 97.9 73 18 150/100 (117) 99 10/16/19 00:00 77 10/15/19 21:00 Room Air 10/15/19 21:00 77 164/112 10/15/19 20:00 97.9 73 18 157/101 (119) 99 10/15/19 20:00 77 10/15/19 18:45 164/112 10/15/19 18:45 164/112 10/15/19 18:00 97.9 72 19 164/112 (129) 95 10/15/19 16:00 94 10/15/19 16:00 97.9 72 19 164/112 (129) 95 10/15/19 12:30 97.9 83 20 160/93 (115) 96 10/15/19 12:00 98.1 83 20 168/106 (126) 98 10/15/19 12:00 160/105 10/15/19 12:00 80 160/105 Intake and Output 10/15/19 10/16/19 19:00 07:00 Intake Total 1450 ml Output Total 3200 ml Balance -1750 ml Intake Oral 1450 ml Output Urine Total 3200 ml Current Medications Medications (Trade) Dose Ordered Sig/Daljit Route PRN Reason Start Time Stop Time Status Last Admin Dose Admin Acetaminophen (Tylenol) 650 mg Q4H PRN ORAL Mild Pain/Temp > 100.5 10/15/19 15:30 11/14/19 07:29 Aspirin (Ecotrin) 325 mg DAILY ORAL 10/15/19 12:15 11/30/19 08:59 10/16/19 10:16 Atorvastatin Calcium (Lipitor) 80 mg BEDTIME ORAL 10/15/19 21:00 11/14/19 20:59 10/15/19 21:00 Carvedilol (Coreg) 25 mg EVERY 12 HOURS ORAL 10/15/19 21:00 11/14/19 11:59 10/16/19 10:17 Clonidine HCl (Catapres Tab) 0.1 mg Q4H PRN ORAL SBP > 170mmHg 10/15/19 18:00 11/14/19 07:29 Dextrose (Dextrose 50%) 25 ml Q30M PRN IV Hypoglycemia 10/16/19 06:30 11/15/19 06:29 Dextrose (Dextrose 50%) 50 ml Q30M PRN IV Hypoglycemia 10/16/19 06:30 11/15/19 06:29 Docusate Sodium (Colace) 100 mg THREE TIMES A DAY ORAL 10/15/19 18:00 11/14/19 17:59 10/16/19 10:16 Fenofibrate (Tricor) 145 mg DAILY ORAL 10/16/19 09:00 11/14/19 11:29 10/16/19 10:16 Fish Oil (Fish Oil) 1,000 mg BID ORAL 10/16/19 11:00 11/15/19 10:59 10/16/19 11:43 Hydralazine HCl (Apresoline) 50 mg Q8HR ORAL 10/16/19 14:00 11/14/19 17:59 Insulin Aspart (NovoLOG) BEFORE MEALS AND HS SUBQ 10/15/19 16:30 11/14/19 11:29 10/16/19 11:48 Insulin Aspart (NovoLOG) 6 units NOVOTIAC SUBQ 10/16/19 07:30 11/15/19 07:29 10/16/19 11:47 Insulin Detemir (Levemir) 18 units DAILY SUBQ 10/16/19 09:00 11/14/19 08:59 10/16/19 10:13 Losartan Potassium (Cozaar) 100 mg DAILY ORAL 10/16/19 09:00 11/14/19 11:59 10/16/19 10:17 Magnesium Sulfate 100 ml @ 100 mls/hr Q1H IVPB 10/16/19 11:00 10/16/19 14:59 10/16/19 11:43 Nitroglycerin (Ntg) 1 patch Q24H TDERMAL 10/15/19 18:00 11/14/19 17:59 10/15/19 18:45 Pantoprazole (Protonix) 40 mg EVERY 12 HOURS ORAL 10/15/19 21:00 11/14/19 20:59 10/16/19 10:16 Potassium Chloride (K-Dur) 40 meq TWICE A DAY ORAL 10/16/19 11:00 11/15/19 10:59 10/16/19 11:43 Laboratory Tests 10/15/19 19:00: Urine Color Yellow, Urine Appearance Clear, Urine pH 6.5, Urine Specific [place] 1.015, Urine Protein 3+H, Urine Glucose (UA) 4+H, Urine Ketones Negative , Urine Blood Negative, Urine Nitrite Negative, Urine Bilirubin Negative, Urine Urobilinogen Normal, Urine Leukocyte Esterase Negative, Urine RBC 0-2H, Urine WBC 0-2, Urine Squamous Epithelial Cells None, Urine Bacteria Few 10/15/19 19:15: Troponin I 0.045 10/16/19 03:20: Troponin I 0.037, White Blood Count 7.0, Red Blood Count 5.81, Hemoglobin 16.9, Hematocrit 47.0, Mean Corpuscular Volume 81, Mean Corpuscular Hemoglobin 29.1, Mean Corpuscular Hemoglobin Concent 36.0, Red Cell Distribution Width 10.4L, Platelet Count 226, Mean Platelet Volume 7.0, Neutrophils (%) (Auto) 52.8, Lymphocytes (%) (Auto) 36.8, Monocytes (%) (Auto) 7.7, Eosinophils (%) (Auto) 1.5, Basophils (%) (Auto) 1.2, Sodium Level 137, Potassium Level 3.0L, Chloride Level 101, Carbon Dioxide Level 26, Anion Gap 10, Blood Urea Nitrogen 21H, Creatinine 1.1, Estimat Glomerular Filtration Rate > 60, Glucose Level 263#H, Uric Acid 6.4, Calcium Level 9.0, Phosphorus Level 2.8, Magnesium Level 1.6L, Total Bilirubin 0.7, Aspartate Amino Transf (AST/SGOT) 22, Alanine Aminotransferase (ALT/SGPT) 46, Alkaline Phosphatase 56, C-Reactive Protein, Quantitative 0.6, Pro-B-Type Natriuretic Peptide 225H, Total Protein 6.7, Albumin 3.1L, Globulin 3.6, Albumin/Globulin Ratio 0.9L, Triglycerides Level 205H, Cholesterol Level 229H, LDL Cholesterol 161H, HDL Cholesterol 41, Cholesterol/HDL Ratio 5.6H, Vitamin B12 Level 818, Folate 16.9, Thyroid Stimulating Hormone (TSH) 2.091 Height (Feet): 6 Height (Inches): 1.00 Weight (Pounds): 263 General Appearance: no apparent distress Objective No change Terry Dsouza MD Oct 16, 2019 11:56
--- NOTE | 2019-10-16 12:30 | NUR ---
NURSE NOTES: Rt FA #[id number] infiltrated. Removed and inserted Lt FA #[id number]. Pt tolerated well and IV flushes well.
[2019-10-16] MEDS ORDERED: HydrALAZINE 50mg tab ORAL SCH (14:00)
--- NOTE | 2019-10-16 16:46 | Infectious Diseases Prog Note ---
Assessment/Plan Assessment/Plan IMPRESSION: Acute viral upper respiratory syndrome. Non ST AR Hypertensive urgency. Diabetes mellitus with hyperglycemia. polycythemia. History of pancreatitis in the past. RECOMMENDATION: Observe off antibiotics. Waiting to transfer to [facility] for coronary angiogram Subjective ROS Limited/Unobtainable: Yes Allergies: Coded Allergies: MORPHINE (Verified Allergy, Unknown, HIVES, 05/05/09) Objective Vital Signs Last 24 Hour Vital Signs Date Time Temp Pulse Resp B/P (MAP) Pulse Ox O2 Delivery O2 Flow Rate FiO2 10/16/19 16:00 63 10/16/19 14:03 155/87 10/16/19 12:00 Room Air 10/16/19 12:00 98.0 80 23 155/87 (109) 96 10/16/19 12:00 79 10/16/19 10:17 137/78 10/16/19 10:17 66 137/78 10/16/19 09:00 Room Air 10/16/19 08:00 98.2 66 22 137/78 (97) 97 10/16/19 08:00 69 10/16/19 06:19 158/86 10/16/19 04:00 98.0 80 20 157/101 (119) 96 10/16/19 04:00 80 10/16/19 02:00 97.9 73 18 157/101 (119) 99 10/16/19 00:14 164/112 10/16/19 00:00 97.9 73 18 150/100 (117) 99 10/16/19 00:00 77 10/15/19 21:00 Room Air 10/15/19 21:00 77 164/112 10/15/19 20:00 97.9 73 18 157/101 (119) 99 10/15/19 20:00 77 10/15/19 18:45 164/112 10/15/19 18:45 164/112 10/15/19 18:00 97.9 72 19 164/112 (129) 95 Height (Feet): 6 Height (Inches): 1.00 Weight (Pounds): 263 General Appearance: no acute distress HEENT: mucous membranes moist Respiratory/Chest: lungs clear Cardiovascular: normal rate Abdomen: soft, non tender Extremities: no edema Neurologic/Psychiatric: other - sleeping Microbiology Date/Time Source Procedure Growth Status 10/14/19 17:40 Nasal Nares - Final Complete 10/14/19 17:40 Nasal Nares - Final Complete Laboratory Tests Test 10/15/19 19:00 10/15/19 19:15 10/16/19 03:20 Urine Color Yellow Urine Appearance Clear Urine pH 6.5 (4.5-8.0) Urine Specific [place] 1.015 (1.005-1.035) Urine Protein 3+ (NEGATIVE) H Urine Glucose (UA) 4+ (NEGATIVE) H Urine Ketones Negative (NEGATIVE) Urine Blood Negative (NEGATIVE) Urine Nitrite Negative (NEGATIVE) Urine Bilirubin Negative (NEGATIVE) Urine Urobilinogen Normal MG/DL (0.0-1.0) Urine Leukocyte Esterase Negative (NEGATIVE) Urine RBC 0-2 /HPF (0 - 0) H Urine WBC 0-2 /HPF (0 - 0) Urine Squamous Epithelial Cells None /LPF (NONE/OCC) Urine Bacteria Few /HPF (NONE) Troponin I 0.045 ng/mL (0.000-0.056) 0.037 ng/mL (0.000-0.056) White Blood Count 7.0 K/UL (4.8-10.8) Red Blood Count 5.81 M/UL (4.70-6.10) Hemoglobin 16.9 G/DL (14.2-18.0) Hematocrit 47.0 % (42.0-52.0) Mean Corpuscular Volume 81 FL (80-99) Mean Corpuscular Hemoglobin 29.1 PG (27.0-31.0) Mean Corpuscular Hemoglobin Concent 36.0 G/DL (32.0-36.0) Red Cell Distribution Width 10.4 % (11.6-14.8) L Platelet Count 226 K/UL (150-450) Mean Platelet Volume 7.0 FL (6.5-10.1) Neutrophils (%) (Auto) 52.8 % (45.0-75.0) Lymphocytes (%) (Auto) 36.8 % (20.0-45.0) Monocytes (%) (Auto) 7.7 % (1.0-10.0) Eosinophils (%) (Auto) 1.5 % (0.0-3.0) Basophils (%) (Auto) 1.2 % (0.0-2.0) Sodium Level 137 MMOL/L (136-145) Potassium Level 3.0 MMOL/L (3.5-5.1) L Chloride Level 101 MMOL/L (98-107) Carbon Dioxide Level 26 MMOL/L (21-32) Anion Gap 10 mmol/L (5-15) Blood Urea Nitrogen 21 mg/dL (7-18) H Creatinine 1.1 MG/DL (0.55-1.30) Estimat Glomerular Filtration Rate > 60 mL/min (>60) Glucose Level 263 MG/DL (74-106) #H Uric Acid 6.4 MG/DL (2.6-7.2) Calcium Level 9.0 MG/DL (8.5-10.1) Phosphorus Level 2.8 MG/DL (2.5-4.9) Magnesium Level 1.6 MG/DL (1.8-2.4) L Total Bilirubin 0.7 MG/DL (0.2-1.0) Aspartate Amino Transf (AST/SGOT) 22 U/L (15-37) Alanine Aminotransferase (ALT/SGPT) 46 U/L (12-78) Alkaline Phosphatase 56 U/L (46-116) C-Reactive Protein, Quantitative 0.6 mg/dL (0.00-0.90) Pro-B-Type Natriuretic Peptide 225 pg/mL (0-125) H Total Protein 6.7 G/DL (6.4-8.2) Albumin 3.1 G/DL (3.4-5.0) L Globulin 3.6 g/dL Albumin/Globulin Ratio 0.9 (1.0-2.7) L Triglycerides Level 205 MG/DL (30-150) H Cholesterol Level 229 MG/DL (< 200) H LDL Cholesterol 161 mg/dL (<100) H HDL Cholesterol 41 MG/DL (40-60) Cholesterol/HDL Ratio 5.6 (3.3-4.4) H Vitamin B12 Level 818 PG/ML (193-986) Folate 16.9 NG/ML (8.6-58.9) Thyroid Stimulating Hormone (TSH) 2.091 uiU/mL (0.358-3.740) Current Medications Medications (Trade) Dose Ordered Sig/Daljit Route PRN Reason Start Time Stop Time Status Last Admin Dose Admin Acetaminophen (Tylenol) 650 mg Q4H PRN ORAL Mild Pain/Temp > 100.5 3/9/20 15:30 11/14/19 07:29 Aspirin (Ecotrin) 325 mg DAILY ORAL 10/15/19 12:15 11/30/19 08:59 10/16/19 10:16 Atorvastatin Calcium (Lipitor) 80 mg BEDTIME ORAL 10/15/19 21:00 11/14/19 20:59 10/15/19 21:00 Carvedilol (Coreg) 25 mg EVERY 12 HOURS ORAL 10/15/19 21:00 11/14/19 11:59 10/16/19 10:17 Clonidine HCl (Catapres Tab) 0.1 mg Q4H PRN ORAL SBP > 170mmHg 10/15/19 18:00 11/14/19 07:29 Dextrose (Dextrose 50%) 25 ml Q30M PRN IV Hypoglycemia 10/16/19 06:30 11/15/19 06:29 Dextrose (Dextrose 50%) 50 ml Q30M PRN IV Hypoglycemia 10/16/19 06:30 11/15/19 06:29 Docusate Sodium (Colace) 100 mg THREE TIMES A DAY ORAL 10/15/19 18:00 11/14/19 17:59 10/16/19 14:00 Fenofibrate (Tricor) 145 mg DAILY ORAL 10/16/19 09:00 11/14/19 11:29 10/16/19 10:16 Fish Oil (Fish Oil) 1,000 mg BID ORAL 10/16/19 11:00 11/15/19 10:59 10/16/19 11:43 Hydralazine HCl (Apresoline) 50 mg Q8HR ORAL 10/16/19 14:00 11/14/19 17:59 10/16/19 14:03 Insulin Aspart (NovoLOG) BEFORE MEALS AND HS SUBQ 10/15/19 16:30 11/14/19 11:29 10/16/19 11:48 Insulin Aspart (NovoLOG) 6 units NOVOTIAC SUBQ 10/16/19 07:30 11/15/19 07:29 10/16/19 11:47 Insulin Detemir (Levemir) 18 units DAILY SUBQ 10/16/19 09:00 11/14/19 08:59 10/16/19 10:13 Losartan Potassium (Cozaar) 100 mg DAILY ORAL 10/16/19 09:00 11/14/19 11:59 10/16/19 10:17 Nitroglycerin (Ntg) 1 patch Q24H TDERMAL 10/15/19 18:00 11/14/19 17:59 10/15/19 18:45 Pantoprazole (Protonix) 40 mg EVERY 12 HOURS ORAL 10/15/19 21:00 11/14/19 20:59 10/16/19 10:16 Potassium Chloride (K-Dur) 40 meq TWICE A DAY ORAL 10/16/19 11:00 11/15/19 10:59 10/16/19 11:43 Louis Alonso MD Oct 16, 2019 16:46
[2019-10-16] MEDS ORDERED: NS 275ml ONE ×2 (17:38→20:29)
[2019-10-16] MEDS ORDERED: Tubing IV Secondary IV ONE ×2 (17:38→20:29)
[2019-10-16] MEDS: Nitroglycerin Patch 0.4mg TDERMAL SCH (17:45)
--- NOTE | 2019-10-16 18:20 | NUR ---
NURSE NOTES: Report given to Jarrell at [facility]. Pt is going to 5NE Bed 5020. Pt is stable at this time, no distress noted, pt denies pain. 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
--- NOTE | 2019-10-16 19:13 | NUR ---
HAND-OFF: Report given to MORGAN Molina. Pt is stable. Still awaiting EMS arrival to transport pt to [facility].
--- NOTE | 2019-10-16 19:32 | NUR ---
NURSE NOTES: Received report from Donna RN, pt. in bed awake, A/O x'4-able to make needs known, no signs or symptoms of acute cardiac or respiratory distress noted, bed alarm on, side rails up x's 2 and safety brakes engaged, mill platform supervisor not on-as pt. 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 pt. appears to be sating well on room air- no distress noted, LFA 20G IV intact and patent, safety measures continued, will continue with plan of care.
--- NOTE | 2019-10-16 20:11 | NUR ---
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 remains stable and no signs of distress noted.
--- NOTE | 2019-10-17 17:04 | NUR ---
*-* INSURANCE *-* UNABLE TO FAX DISCHARGE SUMMARY NO IN THE SYSTEM, no ref# yet #[phone] fax#[phone]
--- NOTE | 2019-10-18 12:21 | Discharge Summary ---
Discharge Summary Discharge Summary _ DATE OF ADMISSION: 10/15/2019 DATE OF DISCHARGE: 10/16/2019 DISCHARGED BY: Dr. Turner REASON FOR ADMISSION: 34 years old male with past medical history of hypertension, diabetes mellitus, pancreatitis, presented for evaluation due to myalgia and diarrhea. Symptoms started 2 days ago. Patient reported progressive nonproductive cough, chest congestion and mild shortness of breath. He denied fever and chills. He denied nasal congestion or sore throat. He denied abdominal pain or nausea , but reported multiple episodes of nonbloody diarrhea. No dysuria , no hematuria . No hematochezia , no melena. No flank pain. Patient reported multiple sick contacts at the office. He denied any headache, visual changes , numbness and tingling . Upon evaluation blood pressure was significantly elevated 201/103. Patient was afebrile. Laboratory work-up revealed no leukocytosis ,stable hemoglobin ,hematocrit ,and platelet count. Potassium 3.2. BUN 25, creatinine 1.3. Glucose 415 . Stable LFT. Troponin 0.043. EKG revealed sinus rhythm with nonspecific ST-T wave changes. Influenza screen swab was negative. Chest x-ray revealed no acute cardiopulmonary pathology. CT of the head revealed no acute intracranial pathology. In emergency department patient received 1 L of fluid , antihypertensive medication , 10 units of insulin ,Toradol , nebulizing treatment with bronchodilator . Blood pressure somewhat improved . Patient admitted to stepdown unit for further management. CONSULTANTS: data technician Dr. Zhou ID specialist Dr. Alonso bias machine operator Dr. Dsouza endocrinology [facility] COURSE: Patient admitted to stepdown unit. Clinical Appeals Auditor closely followed. Echocardiogram demonstrated global left ventricular hypokinesis with ejection fraction of 45 to 50%. Moderate left ventricular hypertrophy noted. No evidence of pericardial effusion. Serial troponin revealed elevated second and third troponin 0.075 and 0.063 correspondingly. Patient started on full anticoagulation Antiplatelet therapy with aspirin and statin continued. Beta-blockade provided. Troponin trending down . Heparin drip was stopped. Blood pressure was managed with multiple antihypertensive, including beta- laurie ,angiotensin receptor laurie ,and hydralazine. Clonidine was on board as needed for blood pressure spikes. Lipid panel revealed triglycerides 205, total cholesterol 229 , and LDL 161. TSH within normal limits. Per data technician patient had NSTEMI with inferior lateral ST depression. Patient was counseled on low fat low cholesterol diet and adherence to it. Statin continued. Engine Manager followed. Hemoglobin A1c -9.3, clearly not at goal. Blood sugar was managed with long-acting Levemir and short-acting insulin pre- meal. Sliding scale of insulin was on board as needed. Metformin was not given at this time , since cardiac catheterization was anticipated. Patient was counseled on diabetic diet and adherence with medications and diet. Renal parameters and electrolytes were closely monitored. Electrolytes corrected as needed, nephrotoxic's were avoided. Potassium was replaced. Potassium and magnesium were replaced prior to discharge prior to transfer. ID specialist followed. ID specialist recommended to observe patient off antibiotic and monitor clinically. Per ID specialist , patient had acute viral upper respiratory syndrome. Pain management was addressed. Supportive care provided. GI prophylaxis provided. Transfer was arranged to higher level of care for cardiac catheterization. Patient subsequently was transferred via [facility] ambulance to [facility] for cardiac catheterization. FINAL DIAGNOSES: NSTEMI Hypertensive urgency Hyperlipidemia Diabetes mellitus [id number] Acute viral upper respiratory syndrome Polycythemia Chronic pancreatitis Obesity DISCHARGE MEDICATIONS: List of medications was sent accepting facility DISCHARGE INSTRUCTIONS: Patient was transferred to [facility] via [facility] ambulance for higher level of care. I have been assigned to dictate discharge summary for this account. I was not involved in the patient's management. Angie Gallego NP Oct 18, 2019 12:21
== END 2019-10-16 20:30 | disposition home or self-care, planned readmission (81) | DRG 281 ==
LOC: EMR 18:08 → EDBEDREQ 10-15 05:39 → 2E 10-15 06:14 → EDBEDREQ 10-15 07:55 → 2E 10-15 08:30 → 2W 10-15 12:04
DX: I21.4 Non-ST elevation (NSTEMI) myocardial infarction (principal); K86.1 Other chronic pancreatitis; E11.65 Type 2 diabetes mellitus with hyperglycemia; I44.0 Atrioventricular block, first degree; E78.5 Hyperlipidemia, unspecified; Z88.6 Allergy status to analgesic agent; J06.9 Acute upper respiratory infection, unspecified; Z91.14 Patient's other noncompliance with medication regimen; Z87.891 Personal history of nicotine dependence; E87.6 Hypokalemia; Z79.4 Long term (current) use of insulin; I16.0 Hypertensive urgency; B34.9 Viral infection, unspecified; D75.1 Secondary polycythemia
CPT/HCPCS: 36415; 70450; 71045; 80053; 80061; 80307; 81001; 82607; 82746; 82962; 83036; 83735; 83880; 84100; 84443; 84484; 84550; 85025; 85730; 86140; 86710; 93005; 93306; 96361; 96374; 96375; 99291; J1815; J7030; J7620; J8499; S5561

== ENCOUNTER 2020-08-11 11:23 | Emergency (ER) | payer MEDICAID, OTHER ==
[~2020-08-11] VITALS: Ht 185.4 cm; Wt 115.7 kg
[~2020-08-11 11:23] MED LIST changes: +GLIMEPIRIDE4 MG ORAL; +LOSARTAN POTAS100 MG ORAL; +VASCEPA1 GM PO
[2020-08-11] MEDS ORDERED: Ketorolac 30mg Inj IV ONE (11:45)
[2020-08-11] MEDS ORDERED: HYDROmorphone 1mg/ml Carpuject IVP ONE ×2 (11:45→13:30)
--- NOTE | 2020-08-11 12:00 | NUR ---
ED Nurse Note:pt. came with c/o left sided chest pain since yesterday, pt. is A/Ox4 ambulatory, EKG done, blood sent to labs, pt. placed on cardiac surgeon, IV meds and fluids given for pain management
[2020-08-11 12:11] LABS: BASOPHILS % (AUTO) 1.9 % (0.0-2.0); LYMPHOCYTES % (AUTO) 36.1 % (20.0-45.0); MEAN CORPUSCULAR VOLUME 83 FL (80-99); MONOCYTES % (AUTO) 6.7 % (1.0-10.0); NEUTROPHILS % (AUTO) 54.3 % (45.0-75.0); PLATELET COUNT 223 K/UL (150-450); RED BLOOD COUNT 6.36 M/UL (4.70-6.10); RED CELL DISTRIBUTION WIDTH 12.6 % (11.6-14.8); WHITE BLOOD COUNT 6.9 K/UL (4.8-10.8)
[2020-08-11] MEDS ORDERED: DiphenhydrAMINE 50mg/ml Inj IVP ONE ×2 (12:15→14:15)
[2020-08-11 12:20] VITALS: BP 189/125
[2020-08-11 12:23] LABS: HEMOGLOBIN 18.5 G/DL (14.2-18.0)
[2020-08-11 12:33] LABS: ANION GAP 5 mmol/L (5-15); BLOOD UREA NITROGEN 20 mg/dL (7-18); CALCIUM 9.2 MG/DL (8.5-10.1); CARBON DIOXIDE 28 MMOL/L (21-32); CHLORIDE 101 MMOL/L (98-107); CREATININE 1.1 MG/DL (0.55-1.30); POTASSIUM 3.5 MMOL/L (3.5-5.1); SODIUM 134 MMOL/L (136-145)
[2020-08-11 12:38] LABS: ALANINE AMINOTRANSFERASE 33 U/L (12-78); ALBUMIN 3.6 G/DL (3.4-5.0); ALBUMIN/GLOBULIN RATIO 0.8 (1.0-2.7); ALKALINE PHOSPHATASE 56 U/L (46-116); ASPARTATE AMINO TRANSFERASE 32 U/L (15-37); BILIRUBIN,TOTAL 0.7 MG/DL (0.2-1.0)
--- NOTE | 2020-08-11 13:11 | NUR ---
ED Nurse Note:pt. requested more pain meds , notified
--- NOTE | 2020-08-11 13:11 | Emergency Room Report ---
History of Present Illness General Chief Complaint: Chest Pain Source: Patient (Ander Chang MD) Present Illness HPI 35-year-old male who presents with abdominal pain and chest pain. History of pancreatitis. History of hypertension. Pain started last night. Pain is epigastric and left side chest, dull, 9 out of 10, nonradiating. Denies shortness of breath. Denies alcohol or drug use. States he is unable to see his PMD because of Covid. Denies fevers or chills. Denies cough. No other aggravating relieving factors. Denies any other associated symptoms (Ander Chang MD) Allergies: Coded Allergies: MORPHINE (Verified Allergy, Unknown, HIVES, 05/05/09) COVID-19 Screening Contact w/high risk pt: No Experienced COVID-19 symptoms?: No COVID-19 Testing performed CREDIT PRODUCTS OFFICER: Yes - 3 weeks ago COVID-19 Screening: Negative COVID-19 COVID-19 Testing Source: clinic (Ander Chang MD) Patient History Past Medical History: HTN, other - pancreatitis Pertinent Family History: none Social History: Denies: smoking, alcohol use, drug use Immunizations: UTD Reviewed Nursing Documentation: PMH: Agreed; PSxH: Agreed (Ander Chang MD) Nursing Documentation-PMH Hx Hypertension: Yes Hx Diabetes: Yes Hx Cancer: No Hx Gastrointestinal Problems: Yes - pancreatitis Hx Neurological Problems: No (Ander Chang MD) Review of Systems All Other Systems: negative except mentioned in HPI (Ander Chang MD) Physical Exam Vital Signs Date Time Temp Pulse Resp B/P (MAP) Pulse Ox O2 Delivery O2 Flow Rate FiO2 08/11/20 11:25 97.9 89 19 189/125 (146) 95 Room Air Sp02 EP Interpretation: reviewed, normal General Appearance: no apparent distress, alert, GCS 15, non-toxic Head: normocephalic, atraumatic Eyes: bilateral eye normal inspection, bilateral eye PERRL ENT: hearing grossly normal, normal pharynx, no angioedema, normal voice Neck: full range of motion, supple/symm/no masses Respiratory: chest non-tender, lungs clear, normal breath sounds, speaking full sentences Cardiovascular #1: regular rate, rhythm, no edema Cardiovascular #2: 2+ carotid (R), 2+ carotid (L), 2+ radial (R), 2+ radial (L) , 2+ dorsalis pedis (R), 2+ dorsalis pedis (L) Gastrointestinal: normal bowel sounds, non tender, soft, non-distended, no guarding, no rebound Rectal: deferred Genitourinary: normal inspection, no CVA tenderness Musculoskeletal: back normal, normal range of motion, gait/station normal, non-tender Neurologic: alert, motor strength/tone normal, oriented x3, sensory intact, responsive, speech normal Psychiatric: judgement/insight normal, memory normal, mood/affect normal, no suicidal/homicidal ideation Reflexes: 3+ bicep (R), 3+ bicep (L), 3+ tricep (R), 3+ tricep (L), 3+ knee (R), 3+ knee (L) Lymphatic: no adenopathy (Ander Chang MD) Procedures Critical Care Time Critical Care Time i. I feel this is a highly complex case requiring extensive working including EKG/Rhythm strip, Xray/CT/US, Blood/urine lab work, repeat exams while in ED, and administration of strong opiates/narcotics for pain control, admission to hospital or close patient follow up. Total time: 90 min bedside evaluation and treatment excludes procedures (EKG). Reason for critical care: chest pain, hypertensive urgency, STEMI Possible complications: hypotension, hypertension, RI, shock, arrhythmias, metabolic acidosis, end organ damage, respiratory failure. Interventions: Labs, EKG chest x-ray, pain meds, review of EKG, discussion with [facility], hydralazine, aspirin Course: Patient presenting with chest pain and abdominal pain. BP elevated. EKG shows concerning ST changes. Troponin elevated. Discussed with [facility]. Concern for STEMI. Given hydralazine. Given aspirin. Given Dilaudid for pain. Patient transferred to [facility] Consultations: nursing staff, EMS, family Performed by: Dr Chang Tolerated well condition = critical j. because of unstable vital signs this patient had a condition that could potentially threaten life or limb. I feel this is a critical patient who required my full attention while patient was considered critical. Total Critical Care Time excluding procedures was greater than 90 minutes (Ander Chang MD) Medical Decision Making Diagnostic Impression: Primary Impression: Hypertensive urgency Additional Impressions: Pancreatitis Qualified Codes: K85.90 - Acute pancreatitis without necrosis or infection, unspecified STEMI (ST elevation myocardial infarction) Qualified Codes: I21.3 - ST elevation (STEMI) myocardial infarction of unspecified site Laboratory Tests Test 08/11/20 11:55 White Blood Count 6.9 K/UL (4.8-10.8) Red Blood Count 6.36 M/UL (4.70-6.10) H Hemoglobin 18.5 G/DL (14.2-18.0) *H Hematocrit 53.0 % (42.0-52.0) H Mean Corpuscular Volume 83 FL (80-99) Mean Corpuscular Hemoglobin 29.0 PG (27.0-31.0) Mean Corpuscular Hemoglobin Concent 34.8 G/DL (32.0-36.0) Red Cell Distribution Width 12.6 % (11.6-14.8) Platelet Count 223 K/UL (150-450) Mean Platelet Volume 8.6 FL (6.5-10.1) Neutrophils (%) (Auto) 54.3 % (45.0-75.0) Lymphocytes (%) (Auto) 36.1 % (20.0-45.0) Monocytes (%) (Auto) 6.7 % (1.0-10.0) Eosinophils (%) (Auto) 1.0 % (0.0-3.0) Basophils (%) (Auto) 1.9 % (0.0-2.0) Sodium Level 134 MMOL/L (136-145) L Potassium Level 3.5 MMOL/L (3.5-5.1) Chloride Level 101 MMOL/L (98-107) Carbon Dioxide Level 28 MMOL/L (21-32) Anion Gap 5 mmol/L (5-15) Blood Urea Nitrogen 20 mg/dL (7-18) H Creatinine 1.1 MG/DL (0.55-1.30) Estimat Glomerular Filtration Rate > 60 mL/min (>60) Glucose Level 208 MG/DL (74-106) H Calcium Level 9.2 MG/DL (8.5-10.1) Total Bilirubin 0.7 MG/DL (0.2-1.0) Aspartate Amino Transf (AST/SGOT) 32 U/L (15-37) Alanine Aminotransferase (ALT/SGPT) 33 U/L (12-78) Alkaline Phosphatase 56 U/L (46-116) Troponin I 0.157 ng/mL (0.000-0.056) Total Protein 7.9 G/DL (6.4-8.2) Albumin 3.6 G/DL (3.4-5.0) Globulin 4.3 g/dL Albumin/Globulin Ratio 0.8 (1.0-2.7) L Lipase 394 U/L (73-393) H (Ander Chang MD) ER Course Assumed care of the patient from the previous provider at approximately 1400. Please refer to initial note for full history and physical exam. Briefly, 35-year-old male brought in for abdominal pain and chest pain 1 day duration. EKG concerning for STEMI. Accepted for transfer by [facility]. Arranging for 911 transport at this time. Vital signs remained stable. He was given aspirin. Plavix was not given at the request of receiving team. (Qasim Love MD) EKG Diagnostic Results Troponin ordered: Yes Rate: normal Rhythm: NSR ST Segments: other - ST changes ASA given to the pt in ED: Yes (Ander Chang MD) Rhythm Strip Diag. Results EP Interpretation: yes Rhythm: NSR, no PVC's, no ectopy (Ander Chang MD) Chest X-Ray Diagnostic Results Chest X-Ray Diagnostic Results : Chest X-Ray Ordered: Yes # of Views/Limited/Complete: 1 View Indication: Chest Pain Interpretation: no consolidation, no effusion, no pneumothorax, no acute cardiopulmonary disease Impression: No acute disease Electronically Signed by: Electronically signed by Ander Chang MD (Ander Chang MD) Last Vital Signs Date Time Temp Pulse Resp B/P (MAP) Pulse Ox O2 Delivery O2 Flow Rate FiO2 08/11/20 12:28 97.9 08/11/20 12:20 89 19 Room Air 08/11/20 12:20 189/125 99 Status: improved (Ander Chang MD) Disposition: SHORT-TERM HOSP Condition: Critical Scripts No Active Prescriptions or Reported Meds Referrals: NOT CHOSEN IPA/MD,REFERRING (PCP) Ander Chang MD Aug 11, 2020 13:11 Qasim Love MD Aug 11, 2020 14:58
[2020-08-11 13:16] VITALS: BP 174/122
--- NOTE | 2020-08-11 13:39 | NUR ---
ED Nurse Note:ASA, hydralazine and second dose of dilauded given to pt. covid swab sent to labs
[2020-08-11 13:51] LABS: APPEARANCE,URINE CLEAR; BILIRUBIN, URINE NEGATIVE (NEGATIVE); GLUCOSE, URINE (UA) 3+ (NEGATIVE); KETONES,URINE NEGATIVE (NEGATIVE); LEUKOCYTE ESTERASE ,URINE NEGATIVE (NEGATIVE); NITRITE,URINE NEGATIVE (NEGATIVE); PH,URINE 6 (4.5-8.0); PROTEIN,URINE 4+ (NEGATIVE); UROBILINOGEN,URINE NORMAL MG/DL (0.0-1.0)
[2020-08-11 13:53] LABS: COLOR,URINE YELLOW
[2020-08-11 14:12] VITALS: BP 164/112
--- NOTE | 2020-08-11 14:12 | Diagnostic Imaging Report ---
Indication: Chest pain Technique: One view of the chest Comparison: 10/14/2019 Findings: Heart is enlarged. The lungs and pleural spaces are clear. There is no significant interim change Impression: Cardiomegaly. No acute process
--- NOTE | 2020-08-11 14:57 | NUR ---
ED Nurse Note: report given to shanelle mathur [facility]
[2020-08-11 15:13] VITALS: BP 150/105
--- NOTE | 2020-08-11 15:13 | NUR ---
ED Nurse Note:[facility] ER for higher level of care, [facility] center
[2020-08-11 15:15] VITALS: BP 150/105
--- NOTE | 2020-08-13 02:16 | Cardiology Report ---
APPROVED REPORT EKG Measurement Heart [id number] <Conclusion> Normal sinus rhythm Possible Left atrial enlargement Septal infarct, age undetermined ST & T wave abnormality, consider lateral ischemia Abnormal ECG
== END 2020-08-11 15:15 | disposition short-term general hospital (02) ==
LOC: EMR 12:58
DX: I16.0 Hypertensive urgency (principal); K85.90 Acute pancreatitis without necrosis or infection, unspecified; I21.3 ST elevation (STEMI) myocardial infarction of unspecified site; I10 Essential (primary) hypertension; E11.9 Type 2 diabetes mellitus without complications; Z88.5 Allergy status to narcotic agent
CPT/HCPCS: 36415; 71045; 80053; 81003; 83690; 84484; 85025; 93005; 96374; 96375; 96376; J0360; J1170; J1200; J1885; J2405; J7030; S0028; U0002; Z7502; 99291; 99292